=== PATIENT | male | born 1955 | race Caucasian/White ===

== ENCOUNTER → 2020-11-23 12:37 | Outpatient (BNVA) | payer MEDICARE, MEDICAID, SELFPAY | PROVIDERS: PCP Internal Medicine; Visit Provider Internal Medicine | DX: Z45.018 Encounter for adjustment and management of other part of cardiac pacemaker (principal); I48.21 Permanent atrial fibrillation; I10 Essential (primary) hypertension; R60.9 Edema, unspecified | CPT/HCPCS: 93005; 99212 ==

== ENCOUNTER → 2023-05-01 23:59 | Outpatient (BNV) | payer MEDICARE, MEDICAID, SELFPAY ==
--- NOTE | 2023-05-03 14:00 | MHC.OFFVIS ---
Intake Intake Visit Reasons: Remote Device Check- [facility] Allergies aspirin [Aspirin] Allergy (Unknown, Verified 11/23/20 13:01) UPSET STOMACH, edema Penicillins Allergy (Unknown, Verified 11/23/20 13:01) unknown REPLACED BY [facility] Medical History (Updated 02/08/21 @ 10:49 by Dario Obrien MD) Edema, unspecified Essential hypertension MANUEL (obstructive sleep apnea) Permanent atrial fibrillation Surgical History (Updated 11/23/20 @ 13:03 by JONATHAN Small) No pertinent past surgical history Office Procedures Cardiac Device Check Cardiac Device Check Details: Date of service- 05/01/2023 ; Battery life 2.4 years; normal lead parameters; 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 Overall normal device function. [id number] Cardiac Device Interrogation, pacemaker Procedure code (CPT) selection complete Assessment & Plan Assessment & Plan (1) Permanent atrial fibrillation: Code(s): I48.21 - Permanent atrial fibrillation Coding Level of Care Code Procedure Only Diagnoses Permanent atrial fibrillation I48.21 CPT Codes Cardiac Device Check - Cardiac Device 12: [id number] Cardiac Device Interrogation, pacemaker ([id number])
== END ==
PROVIDERS: PCP Internal Medicine; Visit Provider Internal Medicine
DX: I48.21 Permanent atrial fibrillation (principal); Z95.0 Presence of cardiac pacemaker
CPT/HCPCS: 93294

== ENCOUNTER → 2023-07-31 23:59 | Outpatient (BNV) | payer MEDICARE, MEDICAID, SELFPAY ==
--- NOTE | 2023-08-08 13:53 | MHC.OFFVIS ---
Intake Intake Visit Reasons: Remote Device Check- 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 Overall normal device function. [id number] Cardiac Device Interrogation, pacemaker Procedure code (CPT) selection complete Assessment & Plan Assessment & Plan (1) Permanent atrial fibrillation: Code(s): I48.21 - Permanent atrial fibrillation Coding Level of Care Code Procedure Only Diagnoses Permanent atrial fibrillation I48.21 CPT Codes Cardiac Device Check - Cardiac Device 12: [id number] Cardiac Device Interrogation, pacemaker ([id number])
== END ==
PROVIDERS: PCP Internal Medicine; Visit Provider Internal Medicine
DX: I48.21 Permanent atrial fibrillation (principal); Z95.0 Presence of cardiac pacemaker
CPT/HCPCS: 93294

== ENCOUNTER → 2023-10-30 23:59 | Outpatient (BNV) | payer MEDICARE, MEDICAID, SELFPAY ==
--- NOTE | 2023-10-31 19:31 | A.OFFVIS_ITS ---
Intake Intake Visit Reasons: Remote Device Check- [facility] Allergies aspirin [Aspirin] Allergy (Unknown, Verified 11/23/20 13:01) UPSET STOMACH, edema Penicillins Allergy (Unknown, Verified 11/23/20 13:01) unknown [facility] Medical History (Updated 02/08/21 @ 10:49 by Dario Obrien MD) Edema, unspecified MANUEL (obstructive sleep apnea) Essential hypertension Permanent atrial fibrillation Surgical History (Updated 11/23/20 @ 13:03 by JONATHAN Small) No pertinent past surgical history Office Procedures Cardiac Device Check Cardiac Device Check Details: Date of service- 10/30/2023 ; Battery life 1.9 years; normal lead parameters; DETECTIVE [employer]AU 81%; no significant arrhythmias. Overall normal device function. [id number] Cardiac Device Interrogation, pacemaker Procedure code (CPT) selection complete Assessment & Plan Assessment & Plan (1) Permanent atrial fibrillation: Code(s): I48.21 - Permanent atrial fibrillation Plan x Coding Level of Care Code Procedure Only Diagnoses Permanent atrial fibrillation I48.21 CPT Codes Cardiac Device Check - Cardiac Device 12: [id number] Cardiac Device Interrogation, pacemaker ([id number])
== END ==
PROVIDERS: PCP Internal Medicine; Visit Provider Internal Medicine
DX: I48.21 Permanent atrial fibrillation (principal); Z95.0 Presence of cardiac pacemaker
CPT/HCPCS: 93294

== ENCOUNTER → 2024-01-29 23:59 | Outpatient (BNV) | payer MEDICARE, MEDICAID, SELFPAY ==
--- NOTE | 2024-02-05 18:59 | MHC.OFFVIS ---
Intake Intake Visit Reasons: Remote device check- [facility] Allergies aspirin [Aspirin] Allergy (Unknown, Verified 11/23/20 13:01) UPSET STOMACH, edema Penicillins Allergy (Unknown, Verified 11/23/20 13:01) unknown [facility] Medical History (Updated 02/08/21 @ 10:49 by Dario Obrien MD) Edema, unspecified MANUEL (obstructive sleep apnea) Essential hypertension Permanent atrial fibrillation Surgical History (Updated 11/23/20 @ 13:03 by JONATHAN Small) No pertinent past surgical history Office Procedures Cardiac Device Check Cardiac Device Check Details: Date of service- 01/29/2024 ; Battery life 1.7years; normal lead parameters; 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 Overall normal device function. [id number] Cardiac Device Interrogation, pacemaker Procedure code (CPT) selection complete Assessment & Plan Assessment & Plan (1) Permanent atrial fibrillation: Code(s): I48.21 - Permanent atrial fibrillation Plan: x Coding Level of Care Code Procedure Only Diagnoses Permanent atrial fibrillation I48.21 CPT Codes Cardiac Device Check - Cardiac Device 12: [id number] Cardiac Device Interrogation, pacemaker ([id number])
== END ==
PROVIDERS: PCP Internal Medicine; Visit Provider Internal Medicine
DX: I48.21 Permanent atrial fibrillation (principal); Z95.0 Presence of cardiac pacemaker
CPT/HCPCS: 93294

== ENCOUNTER → 2024-02-26 14:56 | Outpatient (BNVA) | payer MEDICARE, MEDICAID, SELFPAY | PROVIDERS: PCP Internal Medicine; Visit Provider Nurse Practitioner Family | DX: I48.21 Permanent atrial fibrillation (principal); I10 Essential (primary) hypertension; R60.9 Edema, unspecified; R06.02 Shortness of breath; Z45.018 Encounter for adjustment and management of other part of cardiac pacemaker | CPT/HCPCS: 93005; 99212 ==

== ENCOUNTER 2024-02-26 14:57 | Outpatient (AMB) | payer MEDICARE, MEDICAID, SELFPAY ==
--- NOTE | 2024-02-26 15:03 | MHC.OFFVIS ---
Vital Signs 02/26/24 15:08 BP 100/62 Blood Pressure Location Lt brachial Position Sitting Pulse 58 Pulse Source Monitor Intake Visit Reasons: over due f/u device ck Flight Kitchen Manager Required: No Director Of Acquisition Marketing: Director Of Acquisition Marketing Present Allergies aspirin [Aspirin] Allergy (Unknown, Verified 02/26/24 15:06) UPSET STOMACH, edema Penicillins Allergy (Unknown, Verified 02/26/24 15:06) unknown Medication List - Last Reconciled 02/26/24 by Aranza Dudley NP-C apixaban (Eliquis) 5 mg PO BID bumetanide 1 mg PO BID digoxin 125 mcg PO DAILY potassium chloride ER (Klor-Con M) 20 mEq PO BID HPI HPI over due f/u device ck: Details: Brian is a 68-year-old male with past medical history of hypertension, permanent AFib, chronic edema of his lower extremities, resides in a assisted facility who presents for follow-up. His last prior visit to our office was 11/23/2020. Today he reports that he has been noticing some shortness of breath recently. He says it comes and goes. He sleeps with the head of the bed elevated some. He no longer ambulates due to his leg edema issues. States it has gotten much worse in the last year following surgery for a twisted bowel. He states since then his right leg has grown considerably. If he is upright his leg swell more and he becomes unsteady and falls. They use a wheelchair for his safety. No coughing or recent illness. No chest discomfort at rest or during his light activity. He does admit to being mostly sedentary. No palpitations, presyncope, syncope. Takes his medications when they are given to him. His med list no longer includes metoprolol. His heart rate and blood pressure seem to run on the low side. Staff member from his assisted facility with him. [facility] Medical History Edema, unspecified MANUEL (obstructive sleep apnea) Essential hypertension Permanent atrial fibrillation Surgical History No pertinent past surgical history Review of Systems Const All systems reviewed & are unremarkable except as noted in HPI and below ENT Denies dizziness Card Details: gross right leg swelling, less in left leg, unable to walk due to swelling Denies chest pain, Denies chest pain at rest, Denies chest pain with activity, Denies rapid heart rate, Denies pedal edema, Denies edema, Denies leg edema, Denies lightheadedness, Denies palpitations, Reports dyspnea, Denies dyspnea on exertion and Reports orthopnea Resp Denies cough, Reports dyspnea and Denies dyspnea on exertion GI Denies hematochezia and Denies change in stool character Musc Reports abnormal gait, Reports limited range of motion, Denies muscle cramps, Reports muscle weakness, Denies numbness, Denies radiating pain into limb, Denies stiffness and Denies tingling Neuro Reports abnormal gait, Denies dizziness, Denies numbness and Denies tingling Endo Denies palpitations Physical Exam Vital Signs: Last Vital Signs Pulse 58 02/26/24 15:08 BP 100/62 02/26/24 15:08 Const Other: chronically ill appearing. Sittiing in wheelchair. significant kyphosis. General: cooperative and no acute distress Orientation/consciousness: patient oriented x3 Neck Neck: Yes normal visual inspection and No no JVD Resp Other: absent lung sounds in left 1/2 up - only left upper lobe region has sounds. Right lung with clear sounds. Effort & Inspection: normal respiratory effort Auscultation: clear to auscultation bilaterally (on right), no rales, no rhonchi and no wheezes Cardio Jugular venous distension: no JVD Rate: regular rate Rhythm: abnormal rhythm Heart sounds: S1 normal heart sound present, S2 normal heart sound present, no murmurs and no rubs Neuro General: patient oriented x3 Extrem Other: pitting edema right leg to upper thigh. Pitting edema left leg to knee. Psych Appearance: grossly normal Mental Status: mental status grossly normal Speech and movement: Normal speech and movement present (mobility limited by edema and scoliosis) Office Procedures Cardiac Device Check Cardiac Device Check Details: [facility] [employer] single lead pacemaker interrogation today shows battery 1.7 years, VVI mode, low rate 60, ventricular threshold 1.625 volts at 0.5 milliseconds, V paced 40%, no alerts, auto capture turned on [id number] Cardiac Device Check, leadless/single lead pacemaker Procedure code (CPT) selection complete EKG Details: Today, read by me, underlying atrial fibrillation, frequent ventricular paced beats on tracing, left axis deviation, lateral T-wave abnormality, rate 58, QTC 457 milliseconds [id number], Complete Assessment & Plan Assessment & Plan (1) Permanent atrial fibrillation: Code(s): I48.21 - Permanent atrial fibrillation Category: Medical Plan: History of permanent atrial fibrillation. He had been on metoprolol and digoxin for heart rate control. At this time I am only seeing digoxin on his med list. No recent digoxin level for me to review. He is on Eliquis now for anticoagulation. He previously had been on Coumadin. No bleeding issues reported. Labs done 01/29/2024 does show creatinine 0.82, potassium 3.4, hematocrit 31.4. On his [facility] paperwork I wrote to have digoxin blood level drawn at least twice yearly along with his BMP and CBC. (2) Edema, unspecified: Code(s): R60.9 - Edema, unspecified Category: Medical Plan: History of edema in his lower extremities. He tells me this problem has been much worse since he underwent abdominal surgery last year. He has been on Bumex 1 mg b.i.d. which seems long-term. His kidney function is normal. On exam he does have significant edema in his right lower extremity, pitting all the way up to the upper thigh. He has less edema noted in his left lower extremity, pitting from the knee down. He tells me he is not able to ambulate any longer due to this problem. Last known echocardiogram was done 04/2014 showing EF 60-65% with moderate LVH. On exam I am hearing clear lung sounds on the right and absent lung sounds in left mid and lower lobes. He may have pleural effusion along with this fluid retention. He is reporting shortness of breath. On his [facility] paperwork I recommended a BNP, chest x-ray. Increase his Bumex up to 2 mg in the a.m. and 1 mg in the p.m. with lab work in 1 week. Echocardiogram to be done at [facility] in the near future. Cardiology follow-up in the office approximately 2 months, sooner if needed. (3) Shortness of breath: Code(s): R06.02 - Shortness of breath Category: Medical Plan: As above (4) Essential hypertension: Code(s): I10 - Essential (primary) hypertension Category: Medical Plan: Running on the low side. He is no longer on metoprolol. He is on digoxin for heart rate control. (5) Pacemaker: Code(s): Z95.0 - Presence of cardiac pacemaker Category: Medical Plan: Patient has [facility] single lead pacemaker in place. Functioning normally on interrogation today. Battery 1.7 years. He has remote monitoring in use. Next office interrogation due in 1 year. Plan Time spent on chart review, documentation, interview and assessment Coding Level of Care Code Est Pt Level 4 (16774) Diagnoses Permanent atrial fibrillation I48.21 Edema, unspecified R60.9 Shortness of breath R06.02 Essential hypertension I10 Pacemaker Z95.0 CPT Codes Cardiac Device Check - Cardiac Device 1: [id number] Cardiac Device Check, leadless/single lead pacemaker ([id number]) EKG - CPT: 20280-[id number], Complete ([id number]) Time Spent (min) 30
[2024-02-26 15:08] VITALS: BP 100/62; PULSE 58
== END 2024-02-26 15:57 | disposition home or self-care (01) ==
PROVIDERS: PCP Internal Medicine; Visit Provider Nurse Practitioner Family
DX: I48.21 Permanent atrial fibrillation (principal); R60.9 Edema, unspecified; R06.02 Shortness of breath; I10 Essential (primary) hypertension; Z95.0 Presence of cardiac pacemaker
CPT/HCPCS: 93010; 93279; 99214

== ENCOUNTER → 2024-03-20 13:04 | Outpatient (REF) | payer MEDICARE, MEDICAID, SELFPAY ==
--- NOTE | 2024-03-20 13:14 | CA_ITS ---
Transthoracic Echocardiogram Patient (Last, First, Middle): Brian Carter D Gender: Male Date of : 1955 Age: 68 Procedure Date: 03/20/2024 Procedure Type: Transthoracic Echocardiogram Location: OP Height: 187.96 cm Weight: 98.88 kg BSA: 2.25 m2 Heart Rate: bpm BP: 116 / 56 mmHg Booster Pump Oiler: Referring MD: Aranza Dudley UNDERCOLLAR BASTERNegra Symptoms: R06.02 - Shortness of breath Study Quality: Adequate Conclusions: - The left ventricular systolic function is mildly decreased. The calculated ejection fraction is 46% by biplane method. - Severely increased right ventricular cavity size. - Severe biatrial enlargement. - No obvious valvular pathology seen on this study. Findings Left Ventricle Normal left ventricular cavity size. There is moderately increased left ventricular wall thickness. The left ventricular systolic function is mildly decreased. The calculated ejection fraction is 46% by biplane method. There is mild global hypokinesis. Diastolic function is indeterminate on the basis of available data. Right Ventricle Severely increased right ventricular cavity size. There is normal right ventricular systolic function. There is a pacemaker wire seen in the right ventricle. Atria Severe biatrial enlargement. Aortic Valve The aortic valve was not well visualized. There is no aortic valve stenosis. There is no aortic valve regurgitation. Mitral Valve The mitral valve appears normal. There is mild mitral valve regurgitation. There is no mitral valve stenosis. Pulmonic Valve The pulmonic valve was not well visualized. Tricuspid Valve Normal tricuspid valve structure. There is trace tricuspid valve regurgitation. Tricuspid regurgitation envelope is inadequate for calculation of right ventricular systolic pressure. Great Vessels The sinuses of valsalva and sino tubular ridge are normal in size. Venous The inferior vena cava was not well visualized. Pericardium/Pleural There is no evidence of pericardial effusion. Prior Study Comparison Changes noted compared to prior study dated: 05/22/2014. Decrease in LVEF; increase in RV size. Recommendations, Care & Conclusions No obvious valvular pathology seen on this study. Measurements 2D Linear Measurements IVSd: 1.45 0.6-0.9/0.6-1.0 cm LVIDd: 4.87 3.9-5.3/4.2-5.9 cm LVIDd Index: 2.16 2.4-3.2/2.2-3.1 cm/m2 LVIDs: 3.74 2.0-3.6 cm LVPWd: 1.45 0.7-1.1 cm Ao Root: 3.60 2.1-3.5 cm LA Diam: 6.40 2.7-3.8/3.0-4.0 cm LAIDs Index: 2.84 1.5-2.3 cm/m2 LV Mass: 367.74 67-162/88-224 g LV Mass Index: 163.44 43-95/49-115 g/m2 LVOT Diam: 2.40 3.0+(-)1.3 cm 2D Systolic Function EF 4C: 45.40 >55% EF 2C: 50.90 >55% EF BiP: 46.20 >55% Mitral Valve MV Pk E: 0.81 MV Decel Time: 188.00 E'Lateral: 12.80 E'Medial: 7.62 E/E' Med: 10.60 E/E' Lat: 6.30 PHT: 55.00 MVA PHT: 4.00 Decel [place]: 4.31 Aortic Valve AoV Pk Manjinder: 1.10 AoV Mn Manjinder: 0.72 AoV VTI: 0.25 AoV Pk Grad: 5.00 Aov Mn Grad: 3.00 DI Cont.VTI: 2.82 LVOT LVOT Pk Manjinder: 0.78 LVOT Mn Manjinder: 0.50 LVOT VTI: 0.16 LVOT Pk Grad: 2.00 LVOT Mn Grad: 1.00 LVOT Diam: 2.40 LVOT Area: 4.52 Diastolic Function MV Pk E: 0.81 E'Medial: 7.62 E/E' Med: 10.60 E' Laterial: 12.80 E/E' Lat: 6.30 Right Ventricle TAPSE (mm): 33.80 TVS' Manjinder: 12.90 Great Vessels Aorta Ao Root-2D: 3.60 2.0-3.7 cm Pulmonary Valve PV Pk Manjinder: 1.36 Peak PV Grad: 7.00 Updated in Other Vendor System with Status of Final Dario Obrien MD electronically signed on 03/22/2024 10:51:10 AM with status of Final
== END ==
LOC: HO.CARD 13:04
PROVIDERS: PCP Internal Medicine; Visit Provider Nurse Practitioner Family
DX: R06.02 Shortness of breath (principal); R60.9 Edema, unspecified; Z95.0 Presence of cardiac pacemaker
CPT/HCPCS: 93306

== ENCOUNTER → 2024-03-20 13:14 | Outpatient (BNV) | payer MEDICARE, MEDICAID, SELFPAY | PROVIDERS: PCP Internal Medicine; Visit Provider Internal Medicine | DX: I51.7 Cardiomegaly (principal); I34.0 Nonrheumatic mitral (valve) insufficiency | CPT/HCPCS: 93306 ==

== ENCOUNTER → 2024-04-29 23:59 | Outpatient (BNV) | payer MEDICARE, MEDICAID, SELFPAY ==
--- NOTE | 2024-05-09 10:19 | A.OFFVIS_ITS ---
Intake Visit Reasons: Remote device check- [facility] Allergies aspirin [Aspirin] Allergy (Unknown, Verified 02/26/24 15:06) UPSET STOMACH, edema Penicillins Allergy (Unknown, Verified 02/26/24 15:06) unknown [facility] Medical History Edema, unspecified MANUEL (obstructive sleep apnea) Essential hypertension Permanent atrial fibrillation Surgical History No pertinent past surgical history Office Procedures Cardiac Device Check Cardiac Device Check Details: Date of service- 04/29/2024 ; Battery life >1 years; normal lead parameters; ICT BUSINESS ANALYST 60%; no significant arrhythmias. Overall normal device function. [id number] Cardiac Device Interrogation, pacemaker Procedure code (CPT) selection complete Assessment & Plan Assessment & Plan (1) Permanent atrial fibrillation: Code(s): I48.21 - Permanent atrial fibrillation Category: Medical Plan x Coding Level of Care Code Procedure Only Diagnoses Permanent atrial fibrillation I48.21 CPT Codes Cardiac Device Check - Cardiac Device 12: [id number] Cardiac Device Interrogation, pacemaker ([id number])
== END ==
PROVIDERS: PCP Internal Medicine; Visit Provider Internal Medicine
DX: I48.21 Permanent atrial fibrillation (principal); Z95.0 Presence of cardiac pacemaker
CPT/HCPCS: 93294

== ENCOUNTER 2024-06-10 13:23 | Outpatient (AMB) | payer MEDICARE, MEDICAID, SELFPAY ==
--- NOTE | 2024-06-10 13:47 | MHC.OFFVIS ---
Vital Signs 06/10/24 13:55 Weight 240 lb BP 100/62 Blood Pressure Location Lt brachial Position Sitting Pulse 59 Pulse Source Pulse Oximeter Intake Visit Reasons: 2.5 mth fu Transportation Department Head Required: No Soft Metals Hand Engraver: Soft Metals Hand Engraver Present Allergies aspirin [Aspirin] Allergy (Unknown, Verified 06/10/24 13:51) UPSET STOMACH, edema Penicillins Allergy (Unknown, Verified 06/10/24 13:51) unknown Medication List - Last Reconciled 06/10/24 by Aranza Dudley NP-C apixaban (Eliquis) 5 mg PO BID bumetanide 1 mg PO BID collagenase clostridium histo. (Santyl) topical digoxin 125 mcg PO DAILY duloxetine 20 mg PO BID gabapentin 200 mg PO BID lactulose PO nystatin (Nystop) topical oxybutynin chloride ER 5 mg PO DAILY potassium chloride ER (Klor-Con M) 20 mEq (2 x 10 mEq) PO ONCE potassium chloride ER mEq PO BID tamsulosin 0.4 mg PO DAILY HPI HPI 2.5 mth fu: Details: Brian is a 68-year-old male with past medical history of hypertension, permanent AFib, chronic edema of his lower extremities, resides in a custodial facility who presents for follow-up after recent echocardiogram. Today he reports that he has been doing well since his last visit. He tells me his breathing has been more comfortable. He sleeps with the head of the bed which is his norm. He continues to have leg edema which has been chronic. He no longer ambulates, but tells me he is able to stand with assistance. He uses a wheelchair daily. No chest discomfort at rest or during his light activity. No palpitations, presyncope, syncope. Takes his medications when they are given to him. His heart rate and blood pressure run on the low side. Staff member from his custodial facility with him. [facility] Medical History Edema, unspecified MANUEL (obstructive sleep apnea) Essential hypertension Permanent atrial fibrillation Surgical History No pertinent past surgical history Review of Systems Const All systems reviewed & are unremarkable except as noted in HPI and below ENT Denies dizziness Card Denies chest pain, Denies chest pain at rest, Denies chest pain with activity, Denies rapid heart rate, Reports pedal edema, Denies edema, Reports leg edema, Denies lightheadedness, Denies palpitations, Denies dyspnea, Denies dyspnea on exertion and Denies orthopnea Resp Denies cough, Denies dyspnea and Denies dyspnea on exertion GI Denies hematochezia and Denies change in stool character Musc Reports abnormal gait, Denies limited range of motion, Denies muscle cramps, Reports muscle weakness, Denies numbness, Denies radiating pain into limb, Denies stiffness and Denies tingling Neuro Reports abnormal gait, Denies dizziness, Denies numbness and Denies tingling Endo Denies palpitations Physical Exam Vital Signs: Last Vital Signs Pulse 59 06/10/24 13:55 BP 100/62 06/10/24 13:55 Const Other: chronically ill appearing. Sittiing in wheelchair. significant kyphosis. General: cooperative and no acute distress Orientation/consciousness: patient oriented x3 Neck Neck: Yes normal visual inspection and No no JVD Resp Other: absent lung sounds in left base, diminshed remaining left lung sounds. Right lung with clear sounds. Effort & Inspection: normal respiratory effort Auscultation: not clear to auscultation bilaterally (on right), no rales, no rhonchi and no wheezes Cardio Jugular venous distension: no JVD Rate: regular rate Rhythm: abnormal rhythm Heart sounds: S1 normal heart sound present, S2 normal heart sound present, no murmurs and no rubs Neuro General: patient oriented x3 Extrem Other: generalized edema of legs, less pitting than previously noted Psych Appearance: grossly normal Mental Status: mental status grossly normal Speech and movement: Normal speech and movement present (mobility limited by edema and scoliosis) Assessment & Plan Assessment & Plan (1) Permanent atrial fibrillation: Code(s): I48.21 - Permanent atrial fibrillation Category: Medical Plan: History of permanent atrial fibrillation. He had been on metoprolol and digoxin for heart rate control. Now according to the med list he is only on digoxin. On last visit I requested a digoxin level be done however high have no reports to say this was completed. He is not noticing any heart palpitations. His heart tones are noted to be mildly irregular. Will again request that digoxin level be done twice yearly. He is on Eliquis now for anticoagulation. No bleeding issues reported. Labs done 01/29/2024 does show creatinine 0.82, potassium 3.4, hematocrit 31.4. Cardiology follow-up 6 months, sooner if needed. (2) Edema, unspecified: Code(s): R60.9 - Edema, unspecified Category: Medical Plan: History of edema in his lower extremities. He tells me this problem has been much worse since he underwent abdominal surgery last year. He has been on Bumex 1 mg b.i.d. which seems long-term. His kidney function is normal. On last visit his Bumex was increased to 2 mg in the a.m. and 1 mg in the p.m.. I had requested that repeat labs be done however none are available for me to view today. Does have less pitting of the edema noted. He is mostly sedentary and sits in a wheelchair with his legs dependent. An echocardiogram had been done showing EF 46%, severe increase in the RV size and severe biatrial enlargement. A CTA of the chest was done on him in January which showed no pulmonary embolism. He currently reports that his breathing is comfortable and he does not appear to have decompensated heart failure. He does have diminished lung sounds on the left which was noted on last exam. A chest x-ray was recommended however again I see no results. At this time I will have him continue on current Bumex. I wrote on his half-way paperwork that labs be followed and chest x-ray recommended. Leg elevation when sitting if able. (3) Essential hypertension: Code(s): I10 - Essential (primary) hypertension Category: Medical Plan: Running on the low side. He is no longer on metoprolol. He is on digoxin for heart rate control. (4) Pacemaker: Code(s): Z95.0 - Presence of cardiac pacemaker Category: Medical Plan: Patient has [facility] [employer] single lead pacemaker in place. Functioning normally on interrogation last visit. Battery 1.7 years. He has remote monitoring in use. Next office interrogation due February 2025. (5) Abnormal echocardiogram: Code(s): R93.1 - Abnormal findings on diagnostic imaging of heart and coronary circulation Category: Medical Plan: Echocardiogram as above with mildly reduced EF and increased RV and atrial sizes. No known history of CAD. No reports of anginal symptoms but mostly sedentary. Not able to add meds for neurohormonal modulation due to low blood pressures. Check with Dr. Obrien regarding need for nuclear stress test. Plan Time spent on chart review, documentation, interview and assessment Coding Level of Care Code Est Pt Level 4 (17345) Diagnoses Permanent atrial fibrillation I48.21 Edema, unspecified R60.9 Essential hypertension I10 Pacemaker Z95.0 Abnormal echocardiogram R93.1
[2024-06-10 13:55] VITALS: BP 100/62; PULSE 59
== END 2024-06-10 14:55 | disposition home or self-care (01) ==
PROVIDERS: PCP Internal Medicine; Visit Provider Nurse Practitioner Family
DX: I48.21 Permanent atrial fibrillation (principal); R60.9 Edema, unspecified; I10 Essential (primary) hypertension; Z95.0 Presence of cardiac pacemaker; R93.1 Abnormal findings on diagnostic imaging of heart and coronary circulation
CPT/HCPCS: 99214

== ENCOUNTER → 2024-06-10 13:23 | Outpatient (BNVA) | payer MEDICARE, MEDICAID, SELFPAY | PROVIDERS: PCP Internal Medicine; Visit Provider Nurse Practitioner Family | DX: I10 Essential (primary) hypertension (principal); I48.21 Permanent atrial fibrillation; R60.0 Localized edema; R93.1 Abnormal findings on diagnostic imaging of heart and coronary circulation; Z95.0 Presence of cardiac pacemaker | CPT/HCPCS: 99212 ==

== ENCOUNTER → 2024-07-29 23:59 | Outpatient (BNV) | payer MEDICARE, MEDICAID, SELFPAY ==
--- NOTE | 2024-07-30 15:20 | A.OFFVIS_ITS ---
Intake Visit Reasons: Remote device check- [facility] Allergies aspirin [Aspirin] Allergy (Unknown, Verified 06/10/24 13:51) UPSET STOMACH, edema Penicillins Allergy (Unknown, Verified 06/10/24 13:51) unknown [facility] Medical History Edema, unspecified MANUEL (obstructive sleep apnea) Essential hypertension Permanent atrial fibrillation Surgical History No pertinent past surgical history Office Procedures Cardiac Device Check Cardiac Device Check Details: Date of service- 07/29/2024 ; Battery life >1 years; normal lead parameters; PATIENT RELATIONS SPECIALIST 36%; no significant arrhythmias. Overall normal device function. [id number] Cardiac Device Interrogation, pacemaker Procedure code (CPT) selection complete Assessment & Plan Assessment & Plan (1) Pacemaker: Code(s): Z95.0 - Presence of cardiac pacemaker Category: Medical (2) Permanent atrial fibrillation: Code(s): I48.21 - Permanent atrial fibrillation Category: Medical Plan x Coding Level of Care Code Procedure Only Diagnoses Pacemaker Z95.0 Permanent atrial fibrillation I48.21 CPT Codes Cardiac Device Check - Cardiac Device 12: [id number] Cardiac Device Interrogation, pacemaker ([id number])
== END ==
PROVIDERS: PCP Internal Medicine; Visit Provider Internal Medicine
DX: I48.21 Permanent atrial fibrillation (principal); Z95.0 Presence of cardiac pacemaker
CPT/HCPCS: 93294

== ENCOUNTER 2024-12-11 13:40 | Outpatient (AMB) | payer MEDICARE, MEDICAID, SELFPAY ==
--- NOTE | 2024-12-11 13:42 | MHC.OFFVIS ---
Vital Signs 12/11/24 13:43 Height 6 ft 5 in BMI Reason not done Patient refused/unable BP 98/62 Blood Pressure Location Lt brachial Position Semi Card's Pulse 69 Pulse Source Monitor Intake Visit Reasons: 6 mth Allergies aspirin [Aspirin] Allergy (Unknown, Verified 06/10/24 13:51) UPSET STOMACH, edema Penicillins Allergy (Unknown, Verified 06/10/24 13:51) unknown Medication List - Last Reviewed 12/11/24 by Cyndie Dash acetaminophen 325 mg PO QID PRN apixaban (Eliquis) 5 mg PO BID collagenase clostridium histo. (Santyl) topical dapagliflozin propanediol 10 mg PO DAILY digoxin 125 mcg PO DAILY duloxetine 20 mg PO BID furosemide 80 mg PO gabapentin 200 mg PO BID lactulose PO nystatin (Nystop) topical oxybutynin chloride ER 5 mg PO DAILY pantoprazole mg PO DAILY potassium chloride ER (Klor-Con M) 20 mEq (2 x 10 mEq) PO ONCE tamsulosin 0.4 mg PO DAILY HPI Comments Details: Brian is here for follow-up regarding atrial fibrillation. The last couple of visits, he has seen the nurse practitioner. It has been in fact quite some time since I have seen him. Essentially, he has got permanent atrial fibrillation. He is maintained only on digoxin per records. A recent discharge summary from [facility] summarizes all his medical issues. He is chronically wheelchair-bound with chronic decubitus ulcers, biventricular mixed systolic/diastolic dysfunction, reduced RV function, severe TR, pulmonary hypertension, bilateral femoral DVT in 2022, sick sinus syndrome, status post pacemaker, chronic lymphedema, recurrent cellulitis in his lower extremities, left leg abscess, among others. In 10/2024, it seems that he was hospitalized at [facility] with bright red blood per rectum and respiratory failure and congestive heart failure. It seems he was anemic, having anasarca. Underwent blood transfusions. Currently, he states that he cannot walk at all. Essentially bed-bound. Comes in a stretcher with ambulance personnel. No overt symptoms like angina or shortness of breath. skilled nursing meds reviewed. [facility] Medical History (Updated 12/11/24 @ 16:04 by Dario Obrien MD) Chronic combined systolic and diastolic CHF (congestive heart failure) Edema, unspecified MANUEL (obstructive sleep apnea) Essential hypertension Permanent atrial fibrillation Surgical History No pertinent past surgical history Family History (Updated 12/11/24 @ 14:08 by Dario Obrien MD) Mother Breast cancer Father Liver cancer Social History (Updated 12/11/24 @ 13:53 by Dario Obrien MD) Patient Tobacco Use Status: Former Tobacco user Review of Systems Const Denies weakness ENT Denies dizziness Card Denies chest pain, Denies chest pain with activity, Denies syncope, Denies rapid heart rate, Denies pedal edema, Denies edema, Denies leg edema, Denies lightheadedness, Denies palpitations, Denies dyspnea, Denies dyspnea on exertion and Denies orthopnea Resp Denies cough, Denies dyspnea and Denies dyspnea on exertion GI Denies hematochezia and Denies change in stool character Musc Denies abnormal gait, Denies muscle cramps, Denies muscle weakness, Denies numbness, Denies radiating pain into limb and Denies tingling Neuro Denies abnormal gait, Denies dizziness, Denies syncope, Denies numbness, Denies tingling and Denies weakness Endo Denies palpitations Physical Exam Vital Signs: Last Vital Signs Pulse 69 12/11/24 13:43 BP 98/62 12/11/24 13:43 Const Other: Lying in his stretcher General: comfortable and no acute distress Orientation/consciousness: patient oriented x3 HEENT Other: Unremarkable Head: Yes normal to inspection Neck Neck: Yes normal visual inspection Chest Chest palpation & inspection: normal inspection of the chest Resp Other: Difficult to auscultate because of being in a stretcher/body position. No overt findings in the front. Cardio Palpation: normal PMI Heart sounds: S1 normal heart sound present, S2 normal heart sound present, no gallops, no murmurs and no rubs GI Palpation (GI): Soft to palpation Back/Spine/Pelvis Other: unremarkable Skin General skin exam: no rashes or lesions noted Neuro General: patient oriented x3 Extrem Other: Chronic changes. Psych Mental Status: mental status grossly normal Office Procedures EKG Details: EKG shows atrial fibrillation at a rate of 69/Min; rightward axis; incomplete right bundle-branch block pattern; anterior T inversions. [id number], Complete Assessment & Plan Assessment & Plan (1) Permanent atrial fibrillation: Code(s): I48.21 - Permanent atrial fibrillation Category: Medical Plan: Continue Eliquis for the foreseeable future. GI bleeding concerns noted. We discussed about Watchman device today. I also gave him a brochure to review. If he decides to proceed that way, we can arrange consultation at [facility]. Continue digoxin. Digoxin levels should be checked periodically. Last levels are 0.7, 0.8 at [facility] from 10/2024. Last creatinine is 0.68. (2) Chronic combined systolic and diastolic CHF (congestive heart failure): Code(s): I50.42 - Chronic combined systolic (congestive) and diastolic (congestive) heart failure Category: Medical Plan: Per echocardiogram from [place]-02/2024- LVEF 46%. Indeterminate diastolic function. Severely increased right ventricular size with normal function. Per echocardiogram from [facility] 09/2024, LV function described to be reduced but not quantified. Restrictive diastolic function with elevated filling pressures. Dilated right ventricle. Severe tricuspid regurgitation with pulmonary hypertension. He has longstanding leg swelling which is likely multifactorial but cardiac issues above plays some role. Per [facility] notes, it seems that Entresto as put on hold because of hypotension. He is on furosemide, dapagliflozin. Unlikely that he will be able tolerate much meds because of blood pressure. Even if we put him on ideal guideline based medical therapy, doubt cardiac function is going to normalize. No changes in meds made today as he is already hypotensive at 98/62 mm Hg. (3) Chronic right heart failure: Code(s): I50.812 - Chronic right heart failure Category: Medical Plan: Plan as above. Continue diuretics. Local care for legs. Plan Total time spent including review of [facility] records, counseling, documentation, coordination of care-60 minutes. Coding Level of Care Code Est Pt Level 5 (81386) Complex EM visit Add On G2211 Diagnoses Permanent atrial fibrillation I48.21 Chronic combined systolic and diastolic CHF (congestive heart failure) I50.42 Chronic right heart failure I50.812 CPT Codes EKG - CPT: 54546-[id number], Complete ([id number])
[2024-12-11 13:43] VITALS: BP 98/62; PULSE 69
--- OUTSIDE RECORDS SUMMARY | 2024-12-11 14:02 | XMS_ITS | Continuity of Care Document ---
Author Organization [facility] ter Address [address] [place] [id number]- Care Team Providers Care [place] R[employer] Maker Name Role Phone Elder , Katie Elliott Primary Care Physicia n Encounter [facility] [place] Date(s): 11/09/24 - 11/19/[address] [address]- Encounter Diagnosis GI bleed(Final) - 11/09/24 Hypotension(Final) - 11/09/24 Discharge Disposition: A-D/C Home Attending Physician: Joselyn Miner MD Admitting Physician: Nirav Mayes Sr, MD Referring Physician: Not on Staff, Referring MD Encounter Type: Disch IP Allergies, Adverse Reactions, Alerts Substance Criticality Severity Reaction Reaction Severity Status aspirin upset stomach Aspirin adverse reaction Aspirin adverse reaction Active penicillins rash Active Immunizations Given and Recorded Vaccine Date Status Refusal Reason influenza virus vaccine, inactivated 08/05/24 Galindo rded influenza virus vaccine, inactivated 07/20/23 Galindo rded SARS-CoV-2(COVID-19)mRNA-LNP vac([id number]) 07/22/24 Recorded SARS-CoV-2(COVID-19)mRNA-LNP vac([id number]) 02/02/24 Recorded RSV vaccine preF3, recombinant 10/13/23 Recorded SARS-CoV-2(COVID-19)mRNA-LNP vac([id number]) 08/28/23 Recorded [id number] 12y+ bivalent booster vax 03/08/23 Recorded [id number] 12y+ bivalent booster vax 07/20/22 Recorded pneumococcal 23-valent vaccine 10/07/22 Recorded SARS-CoV-2 (COVID-19) mRNA BNT-162b2 vac 02/11/22 Recorded SARS-CoV-2 (COVID-19) mRNA BNT-162b2 vac 07/28/21 Recorded SARS-CoV-2 (COVID-19) mRNA BNT-162b2 vac 11/24/20 Recorded SARS-CoV-2 (COVID-19) mRNA BNT-162b2 vac 11/03/20 Recorded tetanus/diphtheria/pertussis, acel(Tdap) 12/08/21 Given pneumococcal 13-valent vaccine 03/07/19 Recorded Medications acetaminophen 325 mg oral tablet 650 mg, 2, tablet, By Mouth, 4 times a day, PRN, Refills 0, Maintenance, as needed for fever/pain, 04/24/23 12:51:00 PM EDT, Partial fill upon patient request if the prescription is for a schedule II opioid drug. Start Date: 04/24/23 Status: Ordered Repeat number: 1 Acetaminophen Tablet 650 mg, Tablet, By Mouth, Every 4 hours, PRN for Pain , Mild, Temperature Greater than 100.5, Routine, 11/09/24 2:01:00 PM EST Start Date: 11/09/24 Stop Date: 12/09/24 Status: Ordered Repeat number: 1 albuterol-ipratropium 3 mg-0.5 mg/3 ml inhalation solution 3 mL, Neb, 4 times a day, PRN Wheezing/Shortness of Breath, Maintenance, 11/09/24 6:42:00 PM EST, Solution, Partial fill upon patient request if the prescription is for a schedule II opioid drug. Start Date: 11/09/24 Status: Ordered Repeat number: 1 brimonidine 0.2% ophthalmic solution 1 drops, Eyes, Both, 2 times a day, Maintenance, 11/09/24 6:31:00 PM EST, Partial fill upon patient request if the prescription is for a schedule II opioid drug. Start Date: 11/09/24 Status: Ordered Repeat number: 1 Carafate 1 gm oral tablet 1 Gm, By Mouth, 4 times a day, Refills 0, Maintenance, 11/19/24 10:05:00 AM EST, Partial fill upon patient request if the prescription is for a schedule II opioid drug. Start Date: 11/19/24 Status: Ordered Repeat number: 1 dapagliflozin 10 mg oral tablet 1 tablet = 10 mg, By Mouth, Daily, 0 Refills, Maintenance, 11/03/24 9:22:00 AM EST, Tablet, Partial fill upon patient request if the prescription is for a schedule II opioid drug. Start Date: 11/03/24 Status: Ordered Repeat number: 1 Digox 125 mcg (0.125 mg) oral tablet 1 tablet = 125 mcg, By Mouth, Daily, # 30 tablet, 0 Refills, Maintenance, 10/23/24 11:02:00 AM EST, Partial fill upon patient request if the prescription is for a schedule II opioid drug. Start Date: 10/23/24 Status: Ordered Quantity: 30.0 Unit: tablet Repeat number: 1 digoxin 0.125 mg oral tablet 0.125 mg, Tablet, By Mouth, 11/19/24 4:00:00 PM EST Start Date: 11/19/24 Stop Date: 11/19/24 Status: Completed Repeat number: 1 Dulcolax 10 mg rectal suppository 1 supp = 10 mg, Rectally, Daily, PRN as needed for constipation, Maintenance, 11/09/24 6:33:00 PM EST, Suppository, Partial fill upon patient request if the prescription is for a schedule II opioid drug. Start Date: 11/09/24 Status: Ordered Repeat number: 1 duloxetine 20 mg oral enteric coated capsule 1 capsule = 20 mg, By Mouth, 2 times a day, 0 Refills, Maintenance, 10/23/24 10:51:00 AM EST, Capsule, Partial fill upon patient request if the prescription is for a schedule II opioid drug. Start Date: 10/23/24 Status: Ordered Repeat number: 1 Eliquis 5 mg oral tablet 1 tablet = 5 mg, By Mouth, 2 times a day, Maintenance, 11/09/24 6:30:00 PM EST, Tablet, Partial fillupon patient request if the prescription is for a schedule II opioid drug. Start Date: 11/09/24 Status: Ordered Repeat number: 1 ferrous sulfate 325 mg oral enteric coated tablet 325 mg, 1, tablet, By Mouth, Daily, Refills 0, Maintenance, 11/03/24 9:22:00 AM EST, Partial fill upon patient request if the prescription is for a schedule II opioid drug. Start Date: 11/03/24 Status: Ordered Repeat number: 1 gabapentin 100 mg oral capsule 200 mg, 2, capsule, By Mouth, 2 times a day, Refills 0, Maintenance, 10/23/24 10:51:00 AM EST, Partial fill upon patient request if the prescription is for a schedule II opioid drug. Start Date: 10/23/24 Status: Ordered Repeat number: 1 Lasix 80 mg oral tablet 80 mg, By Mouth, 2 times a day, Refills 0, Maintenance, 11/19/24 10:07:00 AM EST, Partial fill upon patient request if the prescription is for a schedule II opioid drug. Start Date: 11/19/24 Status: Ordered Repeat number: 1 melatonin 3 mg oral tablet 2 tablet = 6 mg, By Mouth, Daily at bedtime, PRN for insomnia, Maintenance, 11/09/24 6:41:00 PM EST,Tablet, Partial fill upon patient request if the prescription is for a schedule II opioid drug. Start Date: 11/09/24 Status: Ordered Repeat number: 1 Milk of Magnesia 8% oral suspension 30 mL = 2.4 Gm, By Mouth, Daily, PRN for constipation, Maintenance, 11/09/24 6:40:00 PM EST, Suspension, Partial fill upon patient request if the prescription is for a schedule II opioid drug. Start Date: 11/09/24 Status: Ordered Repeat number: 1 Multivit Therapeutic/Minerals Tablet 1 tablet, By Mouth, Daily, 0 Refills, Maintenance, 10/23/24 10:51:00 AM EST, Tablet, Partial fill upon patient request if the prescription is for a schedule II opioid drug. Start Date: 10/23/24 Status: Ordered Repeat number: 1 nalOXONE / Narcan 4mg Nasal Wentworth (OP) = 0.4 mg, Once, PRN as needed, may repeat every 2 to 3 minutes until patient responds, Maintenance,2 Start Date: 11/09/24 Status: Ordered Repeat number: 1 oxybutynin 5 mg/24 hours oral tablet, extended release = 5 mg, By Mouth, Daily, 0 Refills, Maintenance, 10/23/24 10:51:00 AM EST, XL Tablet, Partial fill upon patient request if the prescription is for a schedule II opioid drug. Start Date: 10/23/24 Status: Ordered Repeat number: 1 oxyCODONE 5 mg oral tablet 5 mg, 1, tablet, By Mouth, Every 6 hours, PRN, Refills 0, Tot. Refills 0, Maintenance, Pain , Moderate, 10/28/24 12:43:00 AM EST, Partial fill upon patient request if the prescription is for a scheduleII opioid drug. Start Date: 10/28/24 Status: Ordered Repeat number: 1 potassium chloride 20 mEq oral tablet, extended release 1 tablet = 20 mEq, By Mouth, Daily, Maintenance, 11/09/24 6:44:00 PM EST, ER Tablet, Partial fill upon patient request if the prescription is for a schedule II opioid drug. Start Date: 11/09/24 Status: Ordered Repeat number: 1 Protonix 40 mg oral delayed release tablet = 40 mg, By Mouth, Daily in AM, 0 Refills, Maintenance, 11/19/24 10:12:00 AM EST, EC Tablet Start Date: 11/19/24 Status: Ordered Repeat number: 1 tamsulosin 0.4 mg oral capsule 0.4 mg, 1, capsule, By Mouth, Daily, Refills 0, Maintenance, 10/23/24 10:51:00 AM EST, Partial fill upon patient request if the prescription is for a schedule II opioid drug. Start Date: 10/23/24 Status: Ordered Repeat number: 1 vancomycin 125 mg oral capsule = 125 mg, By Mouth, Every 6 hours, Doses over 125 mg require ID consult. Indication for Use: C. difficile colitis, 0 Refills, Maintenance, 11/19/24 10:05:00 AM EST, Capsule, Partial fill upon patient request if the prescription is for a schedule II opioid drug. Start Date: 11/19/24 Status: Ordered Repeat number: 1 Vashe Topical Solution 475 mL, Topically, Daily, 0 Refills, Maintenance, Solution Start Date: 11/19/24 Status: Ordered Repeat number: 1 Problem List Condition Confirmation Course Effective Dates Status [facility] atus Informant Lymphedema of leg Confirmed 06/22/24 Active Obese class II Confirmed Active Vital Signs Most recent to oldest [Reference Range]: 1 2 3 Height 198 cm (11/19/24 8:35 AM) 198 cm (11/18/24 4:16 PM) 198 cm (11/14/24 8:07 AM) Weight 149.4 kg (11/18/24 4:00 AM) 148 kg (11/14/24 8:07 AM) 148 kg (11/10/24 8:23 PM) Oxygen Saturation [94-100 %] 94 % (11/19/24 8:00 PM) 98 % (11/19/24 8:35 AM) 97 % (11/18/24 4:16 PM) Pulse Rate [55-90 bpm] 96 bpm *H* (11/19/24 8:00 PM) 74 bpm (11/19/24 3:30 PM) 78 bpm (11/19/24 8:35 AM) Body Mass Index [18.5-24.99 kg/m2] 37.75 kg/m2 *>HHI* (11/14/24 8:07 AM) 36.71 kg/m2 *>HHI* (11/10/24 10:49 AM) 36.71 kg/m2 *>HHI* (11/09/24 8:19 PM) Blood Pressure [90-138/55-84 mm Hg] 115/77mm Hg (11/19/24 8:00 PM) 104/73mm Hg (11/19/24 8:35 AM) 107/58mm Hg (11/18/24 4:16 PM) Respiratory Rate [16-30 br/min] 18 br/min (11/19/24 8:00 PM) 18 br/min (11/19/24 8:35 AM) 18 br/min (11/19/24 4:01 AM) Temperature [96.8-100.4 DegF] 97.5 DegF (11/19/24 8:00 PM) 97.2 DegF (11/19/24 8:35 AM) 98.1 DegF (11/18/24 4:16 PM) Liters per Minute 3 L/min (11/19/24 8:00 PM) 3 L/min (11/19/24 8:35 AM) 3 L/min (11/18/24 4:16 PM) Mode of Delivery (Oxygen) Nasal cannula (11/19/24 8:00 PM) Nasal cannula (11/19/24 8:35 AM) Nasal cannula (11/18/24 4:16 PM) Blood pressure sites Arm, right (11/19/24 8:00 PM) Arm, right (11/19/24 8:35 AM) Arm, right (11/18/24 4:16 PM) Temperature Route Oral (11/19/24 8:00 PM) Oral (11/19/24 8:35 AM) Oral (11/18/24 4:16 PM) Dry Weight 148.8 kg (11/11/24 6:29 AM) 143.9 kg (11/09/24 8:19 PM) Weight Obtained Via Bed scale (11/18/24 4:00 AM) Dry Weight Obtained Via Bed scale (11/11/24 6:29 AM) Social History Social History Type Response Smoking Status Former smoker, quit more than 30 days ago entered on: 09/01/23 Sex Male Sex Representation Male (finding) Clinical Note * Event Display: GG EGD Please click on pdf link to open report Admission evaluation note * Donell Silva DO: PERFORM Event Display: Admission Note Authored Date: Patient: ??BRIAN SAMANIEGO ? Age:??69 Years?Sex:??Male?:??1955?? History of Present Illness Brian is a 69-year-old gentleman with a past medical history of chronic lymphedema, wheelchair-bound status, atrial fibrillation, history of DVT and heart failure with reduced ejection fraction [facility] due to concern for melanotic stool.?? Patient apparently has a previous history of GI bleeds and noted to have bleeding ulcers when he was younger.?? Appears most recently he was hospitalized at [place] and was evaluated by GI team there and no interventionwas pursued during the hospital stay due to stable hemoglobin.?? Ultimately however [place] presentingto the hospital due to large amount of black/bloody stool per [facility]ci facility. ?? In the emergency department patient found to be intermittently hypotensive but responsive to fluid and otherwise was placed on 2 L by nasal cannula but I do not see any documented desaturations.?? Laboratories were notable for a hemoglobin of 7.1 which is lower than previous hemoglobin a week ago of 7.9 with other cell lines stable.?? Additionally he was noted to be mildly hyponatremic, hypokalemic and continues to have a low albumin at 2.?? Patient has had a bowel movement in the emergency department that was dark brown per nursing but not laura tarry stool but not available for me to examine at time of evaluation. ?? At time of exam patient resting in bed.?? He is noted to have a large wound on his buttocks but is otherwise denying any signs of active bleeding or further melanotic stool.?? He does continue to be intermittently hypotensive particularly when sleeping but blood pressures rise when he wakes up and has been given 2 boluses to good effect.?? Ultimately wound care consult be placed for evaluationof sacral wound and additionally will place consultation to gastroenterology team again due to reported melanotic stools.?? Of additional note patient does have a UA with WBCs, leukocytes and heavy bacteria but only symptom is some increasing swelling in his groin he is otherwise denying dysuria orchange in urinary frequency.?? Patient admitted for evaluation of GI bleed as well as ongoing episodes of hypotension. Review of Systems CONSTITUTIONAL: ??Denies any fever, chills EYES:??Denies any changes to vision. HEENT: Denies any OTT. CV:??Denies any CP, palpitations. PULM: Denies any SOB, wheezing, cough. ABD: Denies any abdominal pain, N/V. : Denies dysuria.??Admits??to some swelling?? MS: Denies any joint or muscle pain, falls. NEURO: Denies any focal??weakness, numbness PSYCH: Denies any depression or anxiety.? A full review of systems was completed and is otherwise negative except as mentioned in history of present illness. Objective Vital Signs?? Temperature: 97.4 DegF (11/09/24 18:33:00) Temperature Route: Axillary (11/09/24 18:33:00) Pulse Rate: 79 bpm (11/09/24:23:00) Respiratory Rate: 19 br/min (11/09/24:23:00) Systolic Blood Pressure: 103 mm Hg (11/09/24:23:00) Diastolic Blood Pressure: 70 mm Hg (11/09/24:23:00) Mean Arterial Pressure: 73 mm Hg (11/09/24 18:18:00) Pulse Pressure: 33 mm Hg (11/09/24:23:00) Oxygen Saturation: 95 % (11/09/24:23:00) Liters per Minute: 2 L/min (11/09/24 19:23:00) Mode of Delivery (Oxygen): Nasal cannula (11/09/24 19:23:00) Early Warning Score: 7 (11/09/24 20:10:51) ? Physical Exam General Appearance: NAD. Eyes:??No scleral icterus. ENT: ??MM moist. Cardiovascular: RRR S1 and S2 Respiratory: ??Breath sounds clear GI: Soft. Nontender and nondistended.? MS:?? Chronic Lymphedema??of LE Skin:??Sacral??wound??as seen in??multimedia Neuro: ??No slurred speech. Moving upper and lower extremities spontaneously. Assessment/Plan Assessment:??Brina is a 69-year-old gentleman with a past medical history of chronic lymphedema, wheelchair-bound status, atrial fibrillation, history of DVT and heart failure with reduced ejectionfraction who presented from his [facility] facility due to concern for melanotic stool.??Patient will be admitted for evaluation by gastroenterology team as well as initiated on antibiotics for treatment of concern of urinary tract infection. ?? GI bleed (K92.2) Anemia (D64.9) Patient coming from facility due to reported melanotic stools.??He has not had an episode of melanotic stool here and although blood pressures have been soft and he has been hemodynamically stable and as such will not emergently look for GI intervention and continue to closely monitor H&H.??He has had an ongoing history of this previously and was evaluate by gastroenterology multiple times before. -??Trend H&H -??Continue PPI -??Transfusion for hemoglobin less than 7 -??Monitor bowel movements for melanotic stool over blood -??GI consult placed -??Apixaban held -??Continue iron supplementation ?? Urinary tract infection (N39.0):?? Patient noted to have a UA positive for bacteria as well as leukocyte esterase.??Notably is denyingdysuria but does note increased swelling in his groin and he is unsure if his urinary frequency haschanged and ultimately we will treat for urinary tract infection as this also could be contributingto hypotension as his hemoglobin is largely stable from previous hospitalizations. ??? Start ceftriaxone ??? Monitor infectious symptoms ??? Continue tamsulosin ?? Decubitus ulcer of sacral area (L89.159):?? Patient has a large ulcer that was seen by surgery just over a week ago.??Ultimately will place wound care consult for evaluation of wound care recommendations but do not believe needs surgery to seeagain at this time given recent evaluation. ??? Wound care consultation ?? Atrial fibrillation (I48.91):??Continue digoxin, holding home apixaban in the setting of concern for GI bleed Heart failure with reduced ejection fraction (I50.20):??Continue home dapagliflozin.??Holding Lasixand Entresto in the setting of hypotension ?? VTE Prophylaxis:??On hold in the setting of GI bleed Code Status:??Full ? Histories Allergies Allergies ?(Active and Proposed Allergies Only) aspirin? (Severity: Unknown severity, Onset: Unknown) ?Reactions: Aspirin adverse reaction, Aspirin adverse reaction, upset stomach penicillins? (Severity: Unknown severity, Onset: Unknown) ?Reactions: rash ? Past Medical History/Problem List Active Problems(2) Lymphedema of leg Obese class II History of DVT Heart failure with reduced ejection fraction Atrial fibrillation ? Social History Alcohol Details:??Use: Never. Home/Environment Details:??Living situation: [facility]. ??Other: [facility]. Substance Abuse Details:??Use: Never. Tobacco Details:??Use: Former smoker, quit more than 30 days ago. ? Family History Grandfather diabetes ? Medications Home Medications Acetaminophen (acetaminophen 325 mg oral tablet)?975?Milligram?By Mouth?Every 6 hours?650?2?tablet?Every 4 hours?as needed?as needed for fever/pain?4 times a day Albuterol/Ipratropium (albuterol-ipratropium 3 mg-0.5 mg/3 ml inhalation solution)?3?Milliliter?Neb?4 times a day?as needed?Wheezing/Shortness of Breath apixaban (Eliquis 5 mg oral tablet)?1?tab(s)?5?Milligram?By Mouth?2 times a day Bisacodyl (Dulcolax 10 mg rectal suppository)?1?suppository(ies)?10?Milligram?Rectall y?Daily?as needed?as needed for constipation Brimonidine Ophthalmic (brimonidine 0.2% ophthalmic solution)?1?Drops?Eyes, Both?2 times a day dapagliflozin (dapagliflozin 10 mg oral tablet)?10?Milligram?By Mouth?Daily?1?tab(s) Digoxin (Digox 125 mcg (0.125 mg) oral tablet)?1?tab(s)?125?Microgram?By Mouth?Daily Docusate-Senna (Senna Plus 50 mg-8.6 mg oral tablet)?2?tab(s)?By Mouth?Daily Duloxetine (duloxetine 20 mg oral enteric coated capsule)?20?Milligram?By Mouth?2 timesa day?1?capsule Ferrous Sulfate (ferrous sulfate 325 mg oral enteric coated tablet)?325?Milligram?By Mouth?Daily?1?tablet Furosemide (Lasix 40 mg oral tablet)?40?Milligram?By Mouth?2 times a day?1?tablet Gabapentin (gabapentin 100 mg oral capsule)?200?Milligram?By Mouth?2 times a day?2?capsule Lactulose (lactulose 10 gm/15 ml oral syrup)?15?Milliliter?10?gram?By Mouth?Daily Melatonin (melatonin 3 mg oral tablet)?2?tab(s)?6?Milligram?By Mouth?Daily at bedtime?as needed?for insomnia Milk of Magnesia (Milk of Magnesia 8% oral suspension)?30?Milliliter?2.4?gram?By Mouth?Daily?as needed?for constipation Multivitamin With Minerals (Multivit Therapeutic/Minerals Tablet)?1?tab(s)?By Mouth?Daily nalOXONE (nalOXONE / Narcan 4mg Nasal Wentworth (OP))?0.4?Milligram?Once?as needed?as needed?may repeat every 2 to 3 minutes until patient responds Omeprazole (omeprazole 20 mg oral delayed release tablet)?1?tab(s)?20?Milligram?By Mouth?2 times a day Oxybutynin (oxybutynin 5 mg/24 hours oral tablet, extended release)?5?Milligram?By Mouth?Daily Oxycodone (oxyCODONE 5 mg oral tablet)?5?Milligram?1?tablet?By Mouth?Every 6 hours?as needed?as needed for pain Potassium Chloride (potassium chloride 20 mEq oral tablet, extended release)?1?tab(s)?20?Milliequivalent?By Mouth?Daily sacubitril-valsartan (Entresto 24 mg-26 mg oral tablet)?1?tab(s)?By Mouth?2 times a day Sodium Biphosphate-Sodium Phosphate (Fleet Enema 19 gm-7 gm rectal enema)?1?Each?Rectally?Once?as needed?for constipation Tamsulosin (tamsulosin 0.4 mg oral capsule)?0.4?Milligram?By Mouth?Daily?1?capsule ? Results Recent Labs BLOOD COUNT & DIFF WBC 4.7 k/mm3 ()?? 11/09/2024 10:59 RBC 2.77 m/mm3 (Low)?? 11/09/2024 10:59 Hgb 7.1 Gm/dL (Low)?? 11/09/2024 10:59 Hct 24.9 % (Low)?? 11/09/2024 10:59 MCV 89.9 femtoliters ()?? 11/09/2024 10:59 MCH 25.6 pg (Low)?? 11/09/2024 10:59 MCHC 28.5 Gm/dL (Low)?? 11/09/2024 10:59 Platelet Count 187 k/mm3 ()?? 11/09/2024 10:59 RDW-SD 62.2 femtoliters (High)?? 11/09/2024 10:59 MPV 9.2 femtoliters (Low)?? 11/09/2024 10:59 Nucleated RBC (Automated) 0.0 #/100 WBC'S ()?? 11/09/2024 10:59 Abs. NRBC 0.0 k/mm3 ()?? 11/09/2024 10:59 Abs. Neut 2.9 k/mm3 ()?? 11/09/2024 10:59 Abs. Lymph 1.2 k/mm3 ()?? 11/09/2024 10:59 Abs. [place]et 0.3 k/mm3 (Low)?? 11/09/2024 10:59 Abs. Eo 0.2 k/mm3 ()?? 11/09/2024 10:59 Abs. Baso 0.0 k/mm3 ()?? 11/09/2024 10:59 Neut % 62.7 % ()?? 11/09/2024 10:59 Lymph % 26.2 % ()?? 11/09/2024 10:59 Burnet % 6.7 % ()?? 11/09/2024 10:59 Eos % 3.6 % ()?? 11/09/2024 10:59 Baso % 0.6 % ()?? 11/09/2024 10:59 Imm Gran 0.2 % ()?? 11/09/2024 10:59 Abs. Imm Gran 0.0 k/mm3 ()?? 11/09/2024 10:59 ?? CHEM GENERAL Sodium 146 mmol/L (High)?? 11/09/2024 10:59 Potassium 3.5 mmol/L (Low)?? 11/09/2024 10:59 Chloride 109 mmol/L (High)?? 11/09/2024 10:59 Bicarbonate Level 32 mmol/L (High)?? 11/09/2024 10:59 Anion Gap 5 ()?? 11/09/2024 10:59 Glucose Level 132 mg/dL (High)?? 11/09/2024 10:59 BUN 36 mg/dL (High)?? 11/09/2024 10:59 Creatinine-Blood 0.77 mg/dL ()?? 11/09/2024 10:59 Estimated GFR Creatinine 96 ML/MIN/1.73 M2 ()?? 11/09/2024 10:59 Calcium 9.2 mg/dL ()?? 11/09/2024 10:59 Magnesium 1.9 mg/dL ()?? 11/09/2024 10:59 Protein, Total 7.2 Gm/dL ()?? 11/09/2024 10:59 Albumin 2.0 Gm/dL (Low)?? 11/09/2024 10:59 AG Ratio 0.4 ()?? 11/09/2024 10:59 Alkaline Phosphatase 49 units/L ()?? 11/09/2024 10:59 Lipase 17 units/L ()?? 11/09/2024 10:59 AST (SGOT) 14 units/L ()?? 11/09/2024 10:59 ALT (SGPT) 9 units/L ()?? 11/09/2024 10:59 Bilirubin, Total 0.3 mg/dL ()?? 11/09/2024 10:59 Lactate 2.0 mmol/L ()?? 11/09/2024 10:59 ?? UA/URINALYSIS Appear/Color, Urine YELLOW ()?? 11/09/2024 11:35 Specific [place], Urine 1.022 ()?? 11/09/2024 11:35 pH, Urine 5.5 ()?? 11/09/2024 11:35 Albumin, Urine TRACE (Abnormal)?? 11/09/2024 11:35 Glucose, Urine 1+ (Abnormal)?? 11/09/2024 11:35 Ketones, Urine NEGATIVE ()?? 11/09/2024 11:35 Bilirubin, Urine NEGATIVE ()?? 11/09/2024 11:35 Hemoglobin, Urine NEGATIVE ()?? 11/09/2024 11:35 Nitrite, Urine NEGATIVE ()?? 11/09/2024 11:35 Leukocyte, Urine 2+ (Abnormal)?? 11/09/2024 11:35 Urobilinogen 2 mg/dL (Abnormal)?? 11/09/2024 11:35 WBC's, Urine 36 /HPF (High)?? 11/09/2024 11:35 RBC's, Urine 1 /HPF ()?? 11/09/2024 11:35 Bacteria HEAVY HPF (Abnormal)?? 11/09/2024 11:35 Squamous Epith 1 /HPF ()?? 11/09/2024 11:35 Hyaline Cast 4 LPF (High)?? 11/09/2024 11:35 Mucus SLIGHT /LPF ()?? 11/09/2024 11:35 ? Cardiology * Event Display: Cardiac Rhythm Strips Authored Date: * Event Display: Cardiac Rhythm Strips Authored Date: * Event Display: Cardiac Rhythm Strips Authored Date: Hospital Progress note * Sarina Castellanos RN: PERFORM, SIGN, VERIFY Event Display: Progress Note Hospital Authored Date: Patient: BRIAN SAMANIEGO Age: 69 years Sex: Male : 1955 Associated Diagnoses: None Author: Sarina Castellanos RN Findings Problem Related to Alteration in Gastrointestinal : Alteration in Gastrointestinal Func/new 11/19/2024 16:00 EST Alteration in GI status Related to C Diff, Diarrhea, Gastric Hemorrhage Goals & Outcomes, Gastrointestinal Establish a regular pattern of elimination for pt, Nutritional intake is adequate for metabolic needs, Pt will achieve normal/improved fluid balance, Pt will maintain adequate GI function appropriate for pt, Pt will maintain normal elimination patterns, Pt will resume/maintain adequate hemodynamic status, Gastric drainage will exhibit progressive clearing, Tissue perfusion will return to baseline Interventions, Gastrointestinal Assess/monitor abdomen for distention, tenderness, Assess/monitor bowel pattern, bowel sounds, flatus, Assess/monitor number of bowel movements, Assess/monitor color, quantity, quality, consistency of stoo, Assess/monitor intake & output, Assess if pt tolerating diet, Assess & monitor effectiveness of antibiotics, Encourage PO fluids, Isolation as per policy, Identify cause of incontinence BH Goals/Interventions, Gastrointestinal Yes Gastrointestinal, Problem Start 11/17/2024 23:06 Reviewed plan with, Gastrointestinal Patient Patient Progression, Gastrointestinal Pt progressing according to plan . Evaluation Patient A&Ox3. No c/o pain throughout the day. Wound care not done due to late delivery of Vashe from pharmacy. Clear lung sounds, on 3L NC. Patient orderd for d/c, awaiting [facility] arrival. Incontinent of bowel, diaz catheter removed successfully, patient voided sanguinous into urinal, attending provider made aware, will continue to monitor. Will remove IV access once [facility] arrives. Patient able to make needs known, call patton within reach. Hourly rounding done. * Alfreda Arteaga RN O: PERFORM, SIGN, VERIFY Event Display: Progress Note Hospital Authored Date: Patient: BRIAN SAMANIEGO Age: 69 years Sex: Male : 1955 Associated Diagnoses: None Author: Alfreda Arteaga RN Findings Problem Related to Alteration in Gastrointestinal : Alteration in Gastrointestinal Func/new 11/18/2024 5:00 EST Alteration in GI status Related to Diarrhea, Gastric Hemorrhage Goals & Outcomes, Gastrointestinal Establish a regular pattern of elimination for pt, Nutritional intake is adequate for metabolic needs, Pt will achieve normal/improved fluid balance, Pt will maintain adequate GI function appropriate for pt, Pt will maintain normal elimination patterns, Pt will resume/maintain adequate hemodynamic status, Gastric drainage will exhibit progressive clearing, Tissue perfusion will return to baseline Interventions, Gastrointestinal Assess/monitor abdomen for distention, tenderness, Assess/monitor abdominal girth & bowel function, Assess/monitor bowel pattern, bowel sounds, flatus, Assess/monitor number of bowel movements, Teach Pt/caregiver on bowel elimination interventions, Teach Pt/caregiver re: importance of bowel regime, Teach Pt/caregiver re: nutritional intake & dietary restrict, Teach/encourage deep breath & cough exercises, Teach/encourage use of incentive spirometer Goals/Interventions, Gastrointestinal Yes Gastrointestinal, Problem Start 11/17/2024 23:06 Reviewed plan with, Gastrointestinal Patient Patient Progression, Gastrointestinal Pt progressing according to plan . Narrative/Incidental patient is alert and oriented x 3 able to make needs know. denies pain, dizziness, chest pain and nausea/ vomiting. patient has 2 episodes of Diarrhea, incontinent care given. medication given per order. wound care done. lungs sounds clear/ dim. normal bowel sounds in all quarants. V- Paced on tele. on 3 L NC. safety maintained call patton within reach. hourly rounds done. . Discharge Information Case Management Discharge Plan : Case Management Discharge Plan Data 11/15/2024 12:27 EST Discharge Level of Care at Discharge penitentiary facility Discharge Nursing Homes/Rehab Facilities [facility] Discharge Transportation Arranged [facility] [address] [place] [address] Mode of Transportation Arranged Ambulance Agency [facility] admissions Service Categories #1 Penitentiary, Public Health Nutritionist 11/12/2024 13:05 EST Discharge Nursing Homes/Rehab Facilities [facility] Rehabilitation Discharge : Rehab Discharge Index 11/15/2024 10:39 EST Full chart review completed Not Done: Task Duplication (Not Done) * Joselyn Miner MD: PERFORM Event Display: Progress Note Hospital Authored Date: [id number] Patient: ??BRIAN SAMANIEGO ? Age:??69 Years?Sex:??Male?:??1955?? Subjective ?? Prior notes reviewed Discussed with RN and machine adjuster leader case trim in the room No significant overnight event Diarrhea seems to have improved??stool smear today ?? No labs today Patient seen later in the day, Very pleasant??elderly man??that says overall he is feeling well No??fever chills, nausea vomiting or diarrhea, ?? Sleeping well,??he is eager to back to his [facility] facility ?? Review of Systems Rest of review??system negative Objective Measurements?? Height: 198 cm (11/18/24) Weight: 149.4 kg (11/18/24) Dry Weight: 148.8 kg (11/11/24) Body Mass Index:??37.75 kg/m2??Critical (11/14/24) ? Vital Signs?? Temperature: 98.1 DegF (11/18/24 16:16:00) Temperature Route: Oral (11/18/24 16:16:00) Pulse Rate: 76 bpm (11/18/24 16:16:00) Heart Rate Monitored: 69 bpm (11/17/24 20:00:22) Respiratory Rate: 18 br/min (11/18/24 16:16:00) Systolic Blood Pressure: 107 mm Hg (11/18/24 16:16:00) Diastolic Blood Pressure: 58 mm Hg (11/18/24 16:16:00) Blood pressure sites: Arm, right (11/18/24 16:16:00) Mean Arterial Pressure: 74 mm Hg (11/18/24 16:16:00) Pulse Pressure: 49 mm Hg (11/18/24 16:16:00) Oxygen Saturation: 97 % (11/18/24 16:16:00) Liters per Minute: 3 L/min (11/18/24 16:16:00) Mode of Delivery (Oxygen): Nasal cannula (11/18/24 16:16:00) Early Warning Score: 3 (11/18/24 16:38:32) ? Physical Exam _ 72 Hour Antibiotic History Active Antibiotics Calendar Day Last Administered First Administered Vancomycin??125 mg, By Mouth, Every 6 hours ?3 11/18/2024 16:36 11/16/2024 23:56 ? Results Abnormal Labs No lab data available. ? Assessment/Plan ?? 69 y.o. 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 bilateral femoral DVT (06/2023) on chronic apixaban (patient of Dr. Obrien at [facility]),??h.o. sick sinus syndrome / symptomatic bradycardia s/p pacemaker placement (2013, at [facility]), chronic??LE??lymphedema / recurrent episodes of LE cellulitis / h.o. left leg??abscess s/p I&D (05/2024, Dr. Hill),??GERD, glaucoma, BPH, OA / DJD, depression / anxiety, known colonic diverticuli & polyps (colonoscopy 03/2024, Dr. Hdz), h.o. sigmoid volvulus with ischemia s/p sigmoidcolectomy & primary anastomosis (03/2023, Dr. Moreno), h.o. right knee comminuted proximal tibia shaft & plateau fractures s/p ORIF (05/2006, Dr. Olivares) followed by hardware removal (09/2006, Dr. Olivares), who had just had a very recent hospitalization at [facility] (10/28 - 11/03/2024) with BRBPR / acute hypoxic respiratory failure / [id number]??biventricular mixed systolic & gradeIII diastolic CHF exacerbation (seen by Cardiology while there, Dr. 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 s/p 3 PRBC units transfused so far s/p EGD (11/10/2024, Dr. Hdz), c.w. esophagitis.?? Still with Melena. S/p Colonoscopy 11/14 : limted study due to incomlete prep but no active bleeding noted. Pt COVID-19 PUI 11/15. New Diarrhea??and diagnosis of Norovirus infection +/- C diff 11/16. ?? Melena / hematochezia / BRBPR (K92.1):??. GI bleed (K92.2):??. Acute on chronic blood loss anemia (D64.9):??. Hypotension (I95.9):??. Esophagitis (K20.90):??. GERD (gastroesophageal reflux disease) (K21.9):??. Colonic diverticulosis & polyps (K57.30):? H&H daxa =??6.8 / 23.7. s/p 3 PRBC units transfused so far. H+H stable now.?? s/p EGD (11/10/2024, Dr. Hdz), c.w. esophagitis.?? s/p attempted Colonoscopy 11/14 but prep was suboptimal. No bleeding or black stools observed duringlimited eval. Plan PPI + sucralfate Monitor H+H No plan for repeat Colonoscopy unless pt should bleed again ?? 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 Anasarca (R60.1):??. RVF (right ventricular failure) (I50.810):??. Pulmonary hypertension (I27.20):??. Severe tricuspid regurgitation (I07.1):??. Atrial fibrillation (I48.91):??. Pacemaker (Z95.0):??. Hypertension (I10):??. Hyperlipidemia (E78.5):? Increased dose Lasix at 80 mg po BID, adjust dose as needed Monitor BMP acubitril-valsartan on HOLD due to soft BP's / hypotension On digoxin + dapagliflozin Apixaban??resumed on 11/16 - HH has been stable ?? Urinary tract infection vs more likely ASB:? Urine cx with ESBL E.coli (resistant to Ceftriaxone that he was receiving so far).?? Observation off abrx ?? Decubitus ulcer of buttocks??(L89.159):? Skin / wound care Proactive pressure off-loading / position changes ?? Lymphedema: Lasix 80 mg po BID, adjust dose as needed Compression as tolerated Daily skin care ?? BPH (benign prostatic hyperplasia) (N40.0): Tamsulosin ?? Depression with anxiety (F41.8):?Duloxetine ?? Glaucoma (H40.9):?eyedrops ?? Hx of deep venous thrombosis (Z86.718):??Apixaban ?? Norovirus infection:?? C diff positive: Difficult to distinguish if his diarrhea was due to C diff or more likely Norovirus. C diff could be colonization.?? Plan PO Vanc 125 mg??qid x 14 days Avoid unnecessary abrx Isolation. Diarrhea improving.? COVID-19 PUI 11/15: COVID??-19 PCR (-) 11/15 and 11/17. Test for COVID 11/19.? Isolation, can d/c if 11/19 (-) as well. ? Discharge Planning:??Back to SNF??- hopefully tomorrow ? Note * Joselyn Miner MD: PERFORM, MODIFY, MODIFY, MODIFY Event Display: Discharge/Transfer Note Hospital Authored Date: Patient: ??BRIAN SAMANIEGO ? Age:??69 Years?Sex:??Male?:??1955?? Patient Information Discharge Location: S1 Primary Care Physician: Katie David MD Admit Date/Time: 11/09/2024 13:32 Discharge Disposition Discharge Disposition: Penitentiary Facility/Rehab Discharge Diagnosis ?? 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 Acetaminophen (acetaminophen 325 mg oral tablet)?975?Milligram?By Mouth?Every 6 hours?650?2?tablet?Every 4 hours?as needed?as needed for fever/pain?4 times a day Albuterol/Ipratropium (albuterol-ipratropium 3 mg-0.5 mg/3 ml inhalation solution)?3?Milliliter?Neb?4 times a day?as needed?Wheezing/Shortness of Breath apixaban (Eliquis 5 mg oral tablet)?1?tab(s)?5?Milligram?By Mouth?2 times a day Bisacodyl (Dulcolax 10 mg rectal suppository)?1?suppository(ies)?10?Milligram?Rectall y?Daily?as needed?as needed for constipation Brimonidine Ophthalmic (brimonidine 0.2% ophthalmic solution)?1?Drops?Eyes, Both?2 times a day dapagliflozin (dapagliflozin 10 mg oral tablet)?10?Milligram?By Mouth?Daily?1?tab(s) Digoxin (Digox 125 mcg (0.125 mg) oral tablet)?1?tab(s)?125?Microgram?By Mouth?Daily Duloxetine (duloxetine 20 mg oral enteric coated capsule)?20?Milligram?By Mouth?2 timesa day?1?capsule Emollients, Topical (Vashe Topical Solution)?475?Milliliter?Topically?Daily Ferrous Sulfate (ferrous sulfate 325 mg oral enteric coated tablet)?325?Milligram?By Mouth?Daily?1?tablet Furosemide (Lasix 80 mg oral tablet)?80?Milligram?By Mouth?2 times a day Gabapentin (gabapentin 100 mg oral capsule)?200?Milligram?By Mouth?2 times a day?2?capsule Melatonin (melatonin 3 mg oral tablet)?2?tab(s)?6?Milligram?By Mouth?Daily at bedtime?as needed?for insomnia Milk of Magnesia (Milk of Magnesia 8% oral suspension)?30?Milliliter?2.4?gram?By Mouth?Daily?as needed?for constipation Multivitamin With Minerals (Multivit Therapeutic/Minerals Tablet)?1?tab(s)?By Mouth?Daily nalOXONE (nalOXONE / Narcan 4mg Nasal [place] (OP))?0.4?Milligram?Once?as needed?as needed?may repeat every 2 to 3 minutes until patient responds Oxybutynin (oxybutynin 5 mg/24 hours oral tablet, extended release)?5?Milligram?By Mouth?Daily Oxycodone (oxyCODONE 5 mg oral tablet)?5?Milligram?1?tablet?By Mouth?Every 6 hours?as needed?as needed for pain Pantoprazole (Protonix 40 mg oral delayed release tablet)?40?Milligram?By Mouth?Daily in AM Potassium Chloride (potassium chloride 20 mEq oral tablet, extended release)?1?tab(s)?20?Milliequivalent?By Mouth?Daily Sucralfate (Carafate 1 gm oral tablet)?1?gram?By Mouth?4 times a day Tamsulosin (tamsulosin 0.4 mg oral capsule)?0.4?Milligram?By Mouth?Daily?1?capsule Vancomycin (vancomycin 125 mg oral capsule)?125?Milligram?By Mouth?Every 6 hours?Doses over 125 mg require ID consult. Indication for Use: C. difficile colitis ? Medications Started ?? Sucralfate for 2 weeks Oral vancomycin for 2 weeks???end date 11/30 Medications Discontinued Holding Entresto due to hypotension???if blood pressures and kidney function stable can be restarted Holding bowel regimen due to diarrhea Doses Changed Lasix increased to 80 mg 2 times a day??PPI changed to 40 mg daily Allergies Allergies ?(Active and Proposed Allergies Only) aspirin? (Severity: Unknown severity, Onset: Unknown) ?Reactions: Aspirin adverse reaction, Aspirin adverse reaction, upset stomach penicillins? (Severity: Unknown severity, Onset: Unknown) ?Reactions: rash ? PCP Follow-Up/Heads-Up ?? Labs to check CBC/basic metabolic panel in 1 week Hospital Course ?? 69 y.o. gentleman, appearing older and frailer than his age,??a chronic longterm resident at [facility] x 8 years (chronically wheelchair-bound with chronic decubitus ulcers), with a h.o. 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 bilateral femoral DVT (06/2023) on chronic apixaban (patient of Dr. Obrien at [facility]),??h.o. sick sinus syndrome / symptomatic bradycardia s/p pacemaker placement (2013, at [facility]), chronic??LE??lymphedema / recurrent episodes of LE cellulitis / h.o. left leg??abscess s/p I&D (05/2024, Dr. Hill),??GERD, glaucoma, BPH, OA / DJD, depression / anxiety, known colonic diverticuli & polyps (colonoscopy 03/2024, Dr. Hdz), h.o. sigmoid volvulus with ischemia s/p sigmoidcolectomy & primary anastomosis (03/2023, Dr. Moreno), h.o. right knee comminuted proximal tibia shaft & plateau fractures s/p ORIF (05/2006, Dr. Olivares) followed by hardware removal (09/2006, Dr. Olivares), who had just had a very recent hospitalization at [facility] (10/28 - 11/03/2024) with BRBPR / acute hypoxic respiratory failure / fzahz-xs-auhcfdx??biventricular mixed systolic & gradeIII diastolic CHF exacerbation (seen by Cardiology while there, Dr. 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 s/p 3 PRBC units transfused so far s/p EGD (11/10/2024, Dr. Hdz), c.w. esophagitis.?? Had melena and unerwent??Colonoscopy 11/14 : limted study due to incomlete prep but no active bleeding noted. Pt COVID-19 PUI 11/15. New Diarrhea??and diagnosis of Norovirus infection +/- C diff 11/16. Otherwise stable from GI bleed standpoint? started on Eliquis and H&H has been stable ?? Melena / hematochezia / BRBPR (K92.1):??. GI bleed (K92.2):??. Acute on chronic blood loss anemia (D64.9):??. Hypotension (I95.9):??. Esophagitis (K20.90):??. GERD (gastroesophageal reflux disease) (K21.9):??. Colonic diverticulosis & polyps (K57.30):? H&H daxa =??6.8 / 23.7. s/p 3 PRBC units transfused so far. H+H stable now.?? s/p EGD (11/10/2024, Dr. Hdz), c.w. esophagitis.?? s/p attempted Colonoscopy 11/14 but prep was suboptimal. No bleeding or black stools observed duringlimited eval. H&H now stable Plan Pantoprazole 40 mg daily??+??continue with sucralfate??for 2 weeks No plan for repeat Colonoscopy unless pt should bleed again?? Repeat CBC in 1 week ?? 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 Anasarca (R60.1):??. RVF (right ventricular failure) (I50.810):??. Pulmonary hypertension (I27.20):??. Severe tricuspid regurgitation (I07.1):??. Atrial fibrillation (I48.91):??. Pacemaker (Z95.0):??. Hypertension (I10):??. Hyperlipidemia (E78.5):? Plan Increased dose Lasix at 80 mg po BID, adjust dose as needed Sacubitril-valsartan on HOLD due to soft BP's / hypotension???if blood pressure is stable can be resumed On digoxin + dapagliflozin Apixaban??resumed on 11/16 - HH has been stable ?? Urinary tract infection vs more likely ASB:? Urine cx with ESBL E.coli (resistant to Ceftriaxone that he was receiving so far).?? Observation off abrx Looks like Diaz catheter was placed??due to his work,??given no issues with voiding discontinued prior to discharge???will need to monitor for??retention. ??Patient says he has no issues with retention in the past ?? Decubitus ulcer of buttocks??(L89.159):? 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 right and left buttock wounds- Apply Vashe moistened gauze to wound bed. Leave in place x 10 minutes. Remove gauze and pat wound bed dry. Pack lightly with Aquacel AG. Cover with Mepilex foam dressing. Change daily and as needed for soilage/saturation 2. Continue use of low air loss mattress 3. Continue to turn and reposition every 2 hours and as needed 4. Continue to provide incontinence care and moisture management as needed 5. Continue to offload all bony prominences 6. Continue to float heels off of all surfaces 7. Continue to provide optimal nutritional support 8. Gaymar cushion to seat when/if OOB to chair ?? Proactive pressure off-loading / position changes ?? Lymphedema: Lasix 80 mg po BID, adjust dose as needed Compression as tolerated Daily skin care ?? BPH (benign prostatic hyperplasia) (N40.0): Tamsulosin ?? Depression with anxiety (F41.8):?Duloxetine ?? Glaucoma (H40.9):?eyedrops ?? Hx of deep venous thrombosis (Z86.718):??Apixaban ?? Norovirus infection:?? C diff positive: Difficult to distinguish if his diarrhea was due to C diff or more likely Norovirus. C diff could be colonization.?? Plan PO Vanc 125 mg??qid x 14 days???end date 11/30 Avoid unnecessary abrx Isolation. Diarrhea improving.? COVID-19 PUI 11/15: COVID??-19 PCR (-) 11/15 and 11/17. Test for COVID 11/19 - negative Off isolation ? Objective ?? Discussed with print project manager around No significant overnight event Patient overall feels well very eager to back to [facility] facility Eating well, no further??black or bloody stool, no labs today however her last H&H??and labs have been stable ?? Updated Nicolasa Goddard on day of DC Vital Signs?? Temperature: 97.2 DegF (11/19/24 08:35:00) Temperature Route: Oral (11/19/24 08:35:00) Pulse Rate: 78 bpm (11/19/24 08:35:00) Respiratory Rate: 18 br/min (11/19/24 08:35:00) Systolic Blood Pressure: 104 mm Hg (11/19/24 08:35:00) Diastolic Blood Pressure: 73 mm Hg (11/19/24 08:35:00) Blood pressure sites: Arm, right (11/19/24 08:35:00) Mean Arterial Pressure: 83 mm Hg (11/19/24 08:35:00) Pulse Pressure: 31 mm Hg (11/19/24 08:35:00) Oxygen Saturation: 98 % (11/19/24 08:35:00) Liters per Minute: 3 L/min (11/19/24 08:35:00) Mode of Delivery (Oxygen): Nasal cannula (11/19/24 08:35:00) Early Warning Score: 2 (11/19/24 08:36:18) ? . Physical Exam ?? Pleasant man,??no acute distress at rest, oriented x 3 Chest clear to auscultation Abdomen soft, bowel sound present Surgical Procedures Gastroscopy (EGD) Diagnostic 11/10/2024 11:49 Colonoscopy Diagnostic 11/14/2024 08:38 Pending Results Add On Lab Order ordered on 11/09/2024 Add On Lab Order ordered on 11/16/2024 Basic Metabolic Panel ordered on 11/15/2024 CBC w/ Differential ordered on 11/15/2024 COVID-19 (Novel Coronavirus), Rapid PCR ordered on 11/19/2024 Hold Lavender Tube (BB) ordered on 11/09/2024 Transfuse RBCs ordered on 11/10/2024 Transfuse RBCs ordered on 11/11/2024 Transfuse RBCs ordered on 11/12/2024 Type and Screen, Use Hold Lavender ordered on 11/10/2024 Follow-Up Appointments Added Follow Up ?Time Frame ?Comments Katie David MD?1 to 2 weeks Post Discharge Care Diet: ??Low Sodium (2 Gram) Diet ?? Activity: ??as tolerate ?? Wound Care: ??Wound Site: right and left buttock Daily Yes ?? Home Health Face to Face ^[facility] Results Discharge Labs BACTERIOLOGY Urine Culture Results Final report (Abnormal)?? 11/09/2024 11:35 Urine Culture Specimen Source URINE ()?? 11/09/2024 11:35 Urine Culture Isolate 1 Escherichia coli (Abnormal)?? 11/09/2024 11:35 Urine Cult Antimicrobial Susceptibility Comment ()?? 11/09/2024 11:35 ?? BLOOD BANK Blood Type A Positive ()?? 11/13/2024 20:09 Antibody Screen Negative ()?? 11/13/2024 20:09 RBC Unit ID [id number] ()?? 11/12/2024 10:32 RBC Available PT ()?? 11/12/2024 10:32 ?? BLOOD COUNT & DIFF WBC 3.9 k/mm3 (Low)?? 11/17/2024 02:53 RBC 2.90 m/mm3 (Low)?? 11/17/2024 02:53 Hgb 7.9 Gm/dL (Low)?? 11/17/2024 02:53 Hct 25.9 % (Low)?? 11/17/2024 02:53 MCV 89.3 femtoliters ()?? 11/17/2024 02:53 MCH 27.2 pg ()?? 11/17/2024 02:53 MCHC 30.5 Gm/dL (Low)?? 11/17/2024 02:53 Platelet Count 191 k/mm3 ()?? 11/17/2024 02:53 RDW-SD 58.8 femtoliters (High)?? 11/17/2024 02:53 MPV 9.1 femtoliters (Low)?? 11/17/2024 02:53 Nucleated RBC (Automated) 0.0 #/100 WBC'S ()?? 11/17/2024 02:53 Abs. NRBC 0.0 k/mm3 ()?? 11/17/2024 02:53 Abs. Neut 2.4 k/mm3 ()?? 11/17/2024 02:53 Abs. Lymph 1.1 k/mm3 ()?? 11/17/2024 02:53 Abs. Burnet 0.3 k/mm3 (Low)?? 11/17/2024 02:53 Abs. Eo 0.1 k/mm3 ()?? 11/17/2024 02:53 Abs. Baso 0.0 k/mm3 ()?? 11/17/2024 02:53 Neut % 61.1 % ()?? 11/17/2024 02:53 Lymph % 27.1 % ()?? 11/17/2024 02:53 Burnet % 8.2 % ()?? 11/17/2024 02:53 Eos % 2.8 % ()?? 11/17/2024 02:53 Baso % 0.5 % ()?? 11/17/2024 02:53 Imm Gran 0.3 % ()?? 11/17/2024 02:53 Abs. Imm Gran 0.0 k/mm3 ()?? 11/17/2024 02:53 ?? CARDIAC Nt-Probnp 3787 pg/mL (High)?? 11/13/2024 01:49 ? CHEM GENERAL Sodium 136 mmol/L ()?? 11/17/2024 02:53 Potassium 3.5 mmol/L (Low)?? 11/17/2024 02:53 Chloride 97 mmol/L (Low)?? 11/17/2024 02:53 Bicarbonate Level 35 mmol/L (High)?? 11/17/2024 02:53 Anion Gap 4 mmol/L ()?? 11/17/2024 02:53 Glucose Level 111 mg/dL (High)?? 11/17/2024 02:53 BUN 17 mg/dL ()?? 11/17/2024 02:53 Creatinine-Blood 0.68 mg/dL (Low)?? 11/17/2024 02:53 Estimated GFR Creatinine 100 ML/MIN/1.73 M2 ()?? 11/17/2024 02:53 Calcium 9.2 mg/dL ()?? 11/17/2024 02:53 Phosphorus 3.0 mg/dL ()?? 11/13/2024 01:49 Magnesium 1.7 mg/dL ()?? 11/16/2024 21:00 Protein, Total 7.0 Gm/dL ()?? 11/13/2024 01:49 Albumin 2.1 Gm/dL (Low)?? 11/13/2024 01:49 AG Ratio 0.4 ()?? 11/09/2024 10:59 Alkaline Phosphatase 47 units/L ()?? 11/13/2024 01:49 Lipase 17 units/L ()?? 11/09/2024 10:59 AST (SGOT) 13 units/L ()?? 11/13/2024 01:49 ALT (SGPT) 6 units/L ()?? 11/13/2024 01:49 Bilirubin, Total 0.3 mg/dL ()?? 11/13/2024 01:49 Bilirubin, Direct 0.1 mg/dL ()?? 11/13/2024 01:49 Bilirubin, Indirect 0.2 mg/dL ()?? 11/13/2024 01:49 Lactate 2.0 mmol/L ()?? 11/09/2024 10:59 ? HEME OTHER Hold Blue Top SPECIMEN DISCARDED AFTER 4 HOURS. ()?? 11/09/2024 10:59 ? LIPID STUDIES Cholesterol 69 mg/dL ()?? 11/13/2024 01:49 Triglycerides 33 mg/dL ()?? 11/13/2024 01:49 HDL Cholesterol 34 mg/dL (Low)?? 11/13/2024 01:49 LDL Cholesterol 28 mg/dL ()?? 11/13/2024 01:49 Non HDL Cholesterol 35 mg/dL ()?? 11/13/2024 01:49 ? MISC. CHEMISTRY Procalcitonin 0.08 ng/mL ()?? 11/13/2024 01:49 ? SEROLOGY INF DISEASE C.difficile Toxin INDETERMINATE (Abnormal)?? 11/16/2024 15:35 C. Difficile Toxin by PCR POSITIVE (Abnormal)?? 11/16/2024 15:35 ?? STOOL STUDIES GI PCR, Campylobacter NEGATIVE (N)?? 11/16/2024 15:35 GI PCR, Plesiomonas shigelloides NEGATIVE (N)?? 11/16/2024 15:35 GI PCR, Salmonella NEGATIVE (N)?? 11/16/2024 15:35 GI PCR, Vibrio NEGATIVE (N)?? 11/16/2024 15:35 GI PCR, Vibrio cholerae NEGATIVE (N)?? 11/16/2024 15:35 GI PCR, Yersinia enterocolitica NEGATIVE (N)?? 11/16/2024 15:35 GI PCR, Enteroaggregative E coli NEGATIVE (N)?? 11/16/2024 15:35 GI PCR, Enteropathogenic E coli NEGATIVE (N)?? 11/16/2024 15:35 GI PCR, Enterotoxigenic E coli NEGATIVE (N)?? 11/16/2024 15:35 GI PCR, Wsihm-pwgpe-mzftxaetx E coli NEGATIVE (N)?? 11/16/2024 15:35 GI PCR, Shigella/Enteroinvasive E coli NEGATIVE (N)?? 11/16/2024 15:35 GI PCR, Cryptosporidium NEGATIVE (N)?? 11/16/2024 15:35 GI PCR, Cyclospora cayetanensis NEGATIVE (N)?? 11/16/2024 15:35 GI PCR, Entamoeba histolytica NEGATIVE (N)?? 11/16/2024 15:35 GI PCR, Giardia lamblia NEGATIVE (N)?? 11/16/2024 15:35 GI PCR, Adenovirus F 40/41 NEGATIVE (N)?? 11/16/2024 15:35 GI PCR, Astrovirus NEGATIVE (N)?? 11/16/2024 15:35 GI PCR, Norovirus GI/GII POSITIVE (Abnormal)?? 11/16/2024 15:35 GI PCR, Rotavirus A NEGATIVE (N)?? 11/16/2024 15:35 GI PCR, Sapovirus NEGATIVE (N)?? 11/16/2024 15:35 ?? UA/URINALYSIS Appear/Color, Urine YELLOW ()?? 11/09/2024 11:35 Specific [place], Urine 1.022 ()?? 11/09/2024 11:35 pH, Urine 5.5 ()?? 11/09/2024 11:35 Albumin, Urine TRACE (Abnormal)?? 11/09/2024 11:35 Glucose, Urine 1+ (Abnormal)?? 11/09/2024 11:35 Ketones, Urine NEGATIVE ()?? 11/09/2024 11:35 Bilirubin, Urine NEGATIVE ()?? 11/09/2024 11:35 Hemoglobin, Urine NEGATIVE ()?? 11/09/2024 11:35 Nitrite, Urine NEGATIVE ()?? 11/09/2024 11:35 Leukocyte, Urine 2+ (Abnormal)?? 11/09/2024 11:35 Urobilinogen 2 mg/dL (Abnormal)?? 11/09/2024 11:35 WBC's, Urine 36 /HPF (High)?? 11/09/2024 11:35 RBC's, Urine 1 /HPF ()?? 11/09/2024 11:35 Bacteria HEAVY HPF (Abnormal)?? 11/09/2024 11:35 Squamous Epith 1 /HPF ()?? 11/09/2024 11:35 Hyaline Cast 4 LPF (High)?? 11/09/2024 11:35 Mucus SLIGHT /LPF ()?? 11/09/2024 11:35 Hold Urine Culture Testing available 48 hours from time of collection. ()?? 11/09/2024 11:35 ?? URINE OTHER Est Creatinine Clearance 130.52 mL/min ()?? 11/17/2024 03:40 ? VIROLOGY COVID-19 by RT-PCR NEGATIVE ()?? 11/17/2024 05:50 ? 35_ minutes spent on discharge * Lea Cline RN: PERFORM, SIGN, VERIFY, SIGN, MODIFY Event Display: Case Management Discharge Plan Authored Date: [id number] Patient: BRIAN SAMANIEGO Age: 69 years Sex: Male : 1955 Associated Diagnoses: None Author: Lea Cline RN Discharge Plan Case Management Discharge Plan : Case Management Discharge Plan Data 11/19/2024 10:13 EST Discharge Level of Care at Discharge penitentiary facility Discharge Nursing Homes/Rehab Facilities [facility] Discharge Transportation Arranged [facility] [address] [place] [address] Discharge Arranged Transport Date/Time 11/19/2024 14:00 Mode of Transportation Arranged Ambulance Name of Agency #1 [facility] Service Categories #1 Penitentiary * Lea Cline RN: PERFORM Event Display: Case Management Discharge Plan Authored Date: [id number] Transport via wheelchair Sarina Morley RN: PERFORM Event Display: Patient Education/Instruction Authored Date: [id number] Inpatient Adult Discharge Instructions. [address] [id number] Name: BRIAN SAMANIEGO : 1955?? Visit: 11/09/2024 13:32?? Current Date: 11/19/2024 18:21 ?? Account: [id number]?? Inpatient Adult Discharge Instructions We would like to thank you for allowing us to assist you with your healthcare needs. The following includes patient education materials and information regarding your injury/illness. Our entire staffstrives to provide an excellent experience for our patients and their families. PLEASE ENSURE YOU FOLLOW-UP PER THE INSTRUCTIONS BELOW! ?? YOUR OPINION IS IMPORTANT TO US! Please complete the survey you may receive by mail or email. Your feedback will be used to make improvements to the healthcare experiences of our patients and their families. Surveys are administered by [employer] ?? If further treatment with your primary care physician or another doctor is recommended, it is important for you to keep the appointment. Call your primary care physician or return to the Emergency Department immediately if your condition worsens, fails to improve, or new symptoms develop. If you need to find a doctor, you can call [facility] Link for a referral at [phone] or toll free at [phone]) or log in to [email or web address].. ?? [facility], in keeping with [facility] guidance, no longer requires face masks for staff, patientsor visitors in most situations. Similiar to time spent indoors at other locations, there is the chance that you were exposed to repiratory viruses during your time with us (such as flu or COVID-19). If you develop symptoms concerning for a viral respiratory infection, please seek testing (and treatment if indicated) from your medical provider or home test kit. ?? You can view and manage your care through the patient portal or by using a health care sandra of your choosing. [employer] is a website that allows you to securely view your medical information including your hospital discharge summary, office visit summaries, medications and follow-up visits. You can also request appointments, renew medications, and request access to your medical information using a health care sandra of your choosing, or just ask a question. You can enroll at [email or web address] or register during your next office visit. You have been discharged from [facility], Patient Care Unit: S1??. If you have any questions regarding these instructions, including results of studies pending, afteryou leave, please call us and we will be happy to assist you 15/05. [facility] Your Care Team Attending Physician Joselyn Miner MD?? Consulting Providers Joselyn Miner MD?? 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 / reduced LVEF Acute on chronic blood loss anemia Anasarca Atrial fibrillation BPH (benign prostatic hyperplasia) Colonic diverticulosis & polyps Decubitus ulcer of sacral area Depression with anxiety Esophagitis GERD (gastroesophageal reflux disease) GI bleeding Glaucoma Heart failure with reduced ejection fraction Hx of deep venous thrombosis Hyperlipidemia Hypertension Melena / hematochezia / BRBPR Pacemaker Pulmonary hypertension RVF (right ventricular failure) Severe tricuspid regurgitation Urinary tract infection Tests Performed Below is a partial list of the tests performed during your hospitalization. You may have had other tests and procedures not included in this list. Please discuss all test results with your provider. Basic Metabolic Panel BUN C diff PCR, w Rfx Toxin/Ag C. DIFFICILE TOXIN CBC CBC w/ Differential Comprehensive Metabolic Panel COVID-19 (Novel Coronavirus), Rapid PCR Creatinine Electrolytes GI Profile, Stool, PCR H + H Hold Blue Top Tube Lactate Level LFT's Lipase Lipid Panel Lytes MAGNESIUM Phosphorus Level Potassium Level ProBNP Procalcitonin Level Type and Screen Urinalysis w/hold for Urine Culture Urine Culture Result Urine Culture, Routine Add On Lab Order (Lab Add On Order)?? B Type Natriuretic Peptide (NT-proBNP) (ProBNP)?? BUN?? Basic Metabolic Panel?? C. difficile Rapid Toxin Assay (C. DIFFICILE TOXIN)?? C.diff PCR, w Rfx Toxin/Ag (C diff PCR, w Rfx Toxin/Ag)?? CBC?? CBC w/ Differential?? COVID-19 (Novel Coronavirus), Rapid PCR?? Comprehensive Metabolic Panel?? Creatinine?? Electrolytes (Lytes)?? GI Profile, Stool, PCR?? Hepatic Function Panel (LFT's)?? Hgb + Hct (H + H)?? Hold Blue Top Tube?? Hold Lavender Tube (BB)?? Lactic Acid Level (Lactate Level)?? Lipase?? Lipid Panel?? Magnesium Level (MAGNESIUM)?? Phosphorus Level?? Potassium Level?? Procalcitonin Level?? Transfuse RBCs?? Type and Screen?? Type and Screen, Use Hold Lavender?? Urinalysis w/hold for Urine Culture?? Urine Culture (Urine Culture, Routine)?? Urine Culture Result?? Primary Care Provider Katie David MD? Advance Directive Health Care Proxy on File Yes - Health Care Proxy Yes - [facility] Discharge Vitals Temperature: 97.2 DegF Height: 198 cm Pulse Rate: 74 bpm Weight: 149.4 kg Respiratory Rate: 18 br/min Body Mass Index:??37.75 kg/m2??Critical Systolic Blood Pressure: 104 mm Hg Body surface area: 2.85 Diastolic Blood Pressure: 73 mm Hg ?? Oxygen Saturation: 98 % ?? Studies Pending All studies ordered during this hospital stay have been completed unless listed below. Please discuss all pending results with your provider listed above in these instructions. ?? Add On Lab Order (Lab Add On Order)?? Basic Metabolic Panel?? CBC w/ Differential?? Hold Lavender Tube (BB)?? Transfuse RBCs?? Type and Screen, Use Hold Lavender?? What to do next Instructions From Your Doctor ?? Orders??:Low Sodium (2 Gram) Diet :as tolerate Care:Wound Site: right and left buttock ??Daily ??Yes? 11/19/24 10:24:00 EST?? Prescriptions??, ??11/19/24 10:24:00 EST?? You Need to Schedule the Following Appointments Follow Up with??Frankie WIGGINS, Katie Elliott When:??Within 1 to 2 weeks Where: [address] [place] [address] [address]1 [place] [address]- Discharge Medications BRIAN SAMANIEGO :1955 Visit Date:11/09/2024 Medications: Please continue your medications until treatment is completed or stopped by your provider. Medications not listed below should be discontinued. Discuss any questions related to medications with your provider. What How Much When Instructions Next Dose New Emollients, Topical (Vashe Topical Solution) 475 Milliliter Topically Daily 11/20 New Pantoprazole (Protonix 40 mg oral delayed release tablet) 40 Milligram Oral Daily in the morning 11/20 New Sucralfate (Carafate 1 gm oral tablet) 1 gram Oral 4 times a day 11/19 9pm New Vancomycin (vancomycin 125 mg oral capsule) 125 Milligram Oral Every 6 hours Doses over 125 mg require ID consult. Indication for Use: C. difficile colitis ?? 11/20 11pm Changed Bisacodyl (Dulcolax 10 mg rectal suppository) 1 suppository(ies) Per rectum Daily as needed for as needed for constipation As needed Changed Brimonidine Ophthalmic (brimonidine 0.2% ophthalmic solution) 1 Drops Both eyes Twice a day 11/19 9pm Changed Duloxetine (duloxetine 20 mg oral enteric coated capsule) 1 capsule Oral Twice a day 11/19 9pm Changed Ferrous Sulfate (ferrous sulfate 325 mg oral enteric coated tablet) 1 tab(s) Oral Daily 11/20 Changed Furosemide (Lasix 80 mg oral tablet) 80 Milligram Oral Twice a day 11/20 9pm Changed Gabapentin (gabapentin 100 mg oral capsule) 2 capsule Oral Twice a day 11/20 9pm Changed Oxycodone (oxyCODONE 5 mg oral tablet) 1 tab(s) Oral Every 6 hours as needed for Pain , Moderate As needed Changed Potassium Chloride (potassium chloride 20 mEq oral tablet, extended release) 1 tab(s) Oral Daily 11/20 Changed Tamsulosin (tamsulosin 0.4 mg oral capsule) 1 capsule Oral Daily 11/20 Changed apixaban (Eliquis 5 mg oral tablet) 1 tab(s) Oral Twice a day 11/19 9pm Changed dapagliflozin (dapagliflozin 10 mg oral tablet) 1 tab(s) Oral Daily 11/20 Unchanged Acetaminophen (acetaminophen 325 mg oral tablet) 2 tab(s) Oral 4 times a day as needed for as needed for fever/pain As needed Unchanged Albuterol/ Ipratropium (albuterol-ipratropium 3 mg-0.5 mg/ 3 ml inhalation solution) 3 Milliliter Nebulized inhalation 4 times a day as needed for Wheezing/Shortness of Breath As needed Unchanged Digoxin (Digox 125 mcg (0.125 mg) oral tablet) 1 tab(s) Oral Daily 11/20 Unchanged Melatonin (melatonin 3 mg oral tablet) 2 tab(s) Oral Daily at Bedtime as needed for for insomnia As needed Unchanged Milk of Magnesia (Milk of Magnesia 8% oral suspension) 30 Milliliter Oral Daily as needed for for constipation As needed Unchanged Multivitamin With Minerals (Multivit Therapeutic/ Minerals Tablet) 1 tab(s) Oral Daily 11/20 Unchanged nalOXONE (nalOXONE / Narcan 4mg Nasal [place] (OP)) 0.4 Milligram Once as needed for as needed may repeat every 2 to 3 minutes until patient responds ?? As needed Unchanged Oxybutynin (oxybutynin 5 mg/ 24 hours oral tablet, extended release) 5 Milligram Oral Daily 11/20 ?? What How Much When Comments Stop Taking Docusate-Senna (Senna Plus 50 mg-8.6 mg oral tablet) 2 tab(s) Oral Daily Stop Taking Lactulose (lactulose 10 gm/ 15 ml oral syrup) 15 Milliliter Oral Daily Stop Taking Omeprazole (omeprazole 20 mg oral delayed release tablet) 1 tab(s) Oral Twice a day Stop Taking sacubitril-valsartan (Entresto 24 mg-26 mg oral tablet) 1 tab(s) Oral Twice a day Stop Taking Sodium Biphosphate-Sodium Phosphate (Fleet Enema 19 gm-7 gm rectal enema) 1 Each Per rectum Once as needed for for constipation Prescription Given During Visit No new medications prescribed at time of discharge.?? Laboratory Results Below is a partial list of the most recent Laboratory test results done prior to this discharge. You may have had other tests and procedures not included in this list. Please discuss all test resultswith your provider. Est Creatinine Clearance - 130.52 mL/min (11/17/2024) RBC Available - PT (11/12/2024) RBC Unit ID - [id number] (11/12/2024) Basic Metabolic Panel (11/17/2024) ???Sodium - 136 mmol/L???Potassium - 3.5 mmol/L???Chloride - 97 mmol/L???Bicarbonate Level - 35 mmol/L???Anion Gap - 4 mmol/L???Glucose Level - 111 mg/dL???BUN - 17 mg/dL???Creatinine-Blood - 0.68 mg/dL???Estimated GFR Creatinine - 100 ML/MIN/1.73 M2???Calcium - 9.2 mg/dL BUN (11/13/2024) ???BUN - 22 mg/dL C diff PCR, w Rfx Toxin/Ag (11/16/2024) ???C. Difficile Toxin by PCR - POSITIVE C. DIFFICILE TOXIN (11/16/2024) ???C.difficile Toxin - INDETERMINATE CBC (11/14/2024) ???WBC - 3.5 k/mm3???RBC - 2.86 m/mm3???Hgb - 7.5 Gm/dL???Hct - 25.2 %???MCV - 88.1 femtoliters???MCH - 26.2 pg???MCHC - 29.8 Gm/dL???Platelet Count - 180 k/mm3???RDW-SD - 57.0 femtoliters???MPV - 9.1 femtoliters???Nucleated RBC (Automated) - 0.0 #/100 WBC'S???Abs. NRBC - 0.0 k/mm3 CBC w/ Differential (11/17/2024) ???WBC - 3.9 k/mm3???RBC - 2.90 m/mm3???Hgb - 7.9 Gm/dL???Hct - 25.9 %???MCV - 89.3 femtoliters???MCH - 27.2 pg???MCHC - 30.5 Gm/dL???Platelet Count - 191 k/mm3???RDW-SD - 58.8 femtoliters???MPV - 9.1 femtoliters???Nucleated RBC (Automated) - 0.0 #/100 WBC'S???Abs. NRBC - 0.0 k/mm3???Abs. Neut - 2.4 k/mm3???Abs. Lymph - 1.1 k/mm3???Abs. [place] - 0.3 k/mm3???Abs. Eo - 0.1 k/mm3???Abs. Baso - 0.0 k/mm3???Neut % - 61.1 %???Lymph % - 27.1 %???[place] % - 8.2 %???Eos % - 2.8 %???Baso % - 0.5 %???Imm Gran- 0.3 %???Abs. Imm Gran - 0.0 k/mm3 Comprehensive Metabolic Panel (11/09/2024) ???Sodium - 146 mmol/L???Potassium - 3.5 mmol/L???Chloride - 109 mmol/L???Bicarbonate Level - 32 mmol/L???Anion Gap - 5???Glucose Level - 132 mg/dL???BUN - 36 mg/dL???Creatinine-Blood - 0.77 mg/dL???Estimated GFR Creatinine - 96 ML/MIN/1.73 M2???Calcium - 9.2 mg/dL???Protein, Total - 7.2 Gm/dL???Albumin - 2.0 Gm/dL???AG Ratio - 0.4???Alkaline Phosphatase - 49 units/L???AST (SGOT) - 14 units/L???ALT (SGPT) - 9 units/L???Bilirubin, Total - 0.3 mg/dL COVID-19 (Novel Coronavirus), Rapid PCR (11/19/2024) ???COVID-19 by RT-PCR - NEGATIVE Creatinine (11/13/2024) ???Creatinine-Blood - 0.61 mg/dL???Estimated GFR Creatinine - 103 ML/MIN/1.73 M2 Electrolytes (11/10/2024) ???Sodium - 145 mmol/L???Potassium - 3.5 mmol/L???Chloride - 110 mmol/L???Bicarbonate Level - 32 mmol/L???Anion Gap - 3 GI Profile, Stool, PCR (11/16/2024) ???GI PCR, Campylobacter - NEGATIVE???GI PCR, Plesiomonas shigelloides - NEGATIVE???GI PCR, Salmonella - NEGATIVE???GI PCR, Vibrio - NEGATIVE???GI PCR, Vibrio cholerae - NEGATIVE???GI PCR, Yersinia enterocolitica - NEGATIVE???GI PCR, Enteroaggregative E coli - NEGATIVE???GI PCR, Enteropathogenic E coli - NEGATIVE???GI PCR, Enterotoxigenic E coli - NEGATIVE???GI PCR, Onose-ftixs-aaqyrvrgf E coli -NEGATIVE???GI PCR, Shigella/Enteroinvasive E coli - NEGATIVE???GI PCR, Cryptosporidium - NEGATIVE???GI PCR, Cyclospora cayetanensis - NEGATIVE???GI PCR, Entamoeba histolytica - NEGATIVE???GI PCR, Giardia lamblia - NEGATIVE???GI PCR, Adenovirus F 40/41 - NEGATIVE???GI PCR, Astrovirus - NEGATIVE???GIPCR, Norovirus GI/GII - POSITIVE???GI PCR, Rotavirus A - NEGATIVE???GI PCR, Sapovirus - NEGATIVE H + H (11/09/2024) ???Hgb - 7.3 Gm/dL???Hct - 25.5 % Hold Blue Top Tube (11/09/2024) ???Hold Blue Top - SPECIMEN DISCARDED AFTER 4 HOURS. Lactate Level (11/09/2024) ???Lactate - 2.0 mmol/L LFT's (11/13/2024) ???Protein, Total - 7.0 Gm/dL???Albumin - 2.1 Gm/dL???Alkaline Phosphatase - 47 units/L???AST (SGOT) - 13 units/L???ALT (SGPT) - 6 units/L???Bilirubin, Total - 0.3 mg/dL???Bilirubin, Direct - 0.1 mg/dL???Bilirubin, Indirect - 0.2 mg/dL Lipase (11/09/2024) ???Lipase - 17 units/L Lipid Panel (11/13/2024) ???Cholesterol - 69 mg/dL???Triglycerides - 33 mg/dL???HDL Cholesterol - 34 mg/dL???LDL Cholesterol- 28 mg/dL???Non HDL Cholesterol - 35 mg/dL Lytes (11/13/2024) ???Sodium - 142 mmol/L???Potassium - 3.6 mmol/L???Chloride - 108 mmol/L???Bicarbonate Level - 30 mmol/L???Anion Gap - 4 MAGNESIUM (11/16/2024) ???Magnesium - 1.7 mg/dL Phosphorus Level (11/13/2024) ???Phosphorus - 3.0 mg/dL Potassium Level (11/16/2024) ???Potassium - 3.3 mmol/L ProBNP (11/13/2024) ???Nt-Probnp - 3787 pg/mL Procalcitonin Level (11/13/2024) ???Procalcitonin - 0.08 ng/mL Type and Screen (11/13/2024) ???Blood Type - A Positive???Antibody Screen - Negative Urinalysis w/hold for Urine Culture (11/09/2024) ???Appear/Color, Urine - YELLOW???Specific [place], Urine - 1.022???pH, Urine - 5.5???Albumin, Urine - TRACE???Glucose, Urine - 1+???Ketones, Urine - NEGATIVE???Bilirubin, Urine - NEGATIVE???Hemoglobin, Urine - NEGATIVE???Nitrite, Urine - NEGATIVE???Leukocyte, Urine - 2+???Urobilinogen - 2 mg/dL???WBC's, Urine - 36 /HPF???RBC's, Urine - 1 /HPF???Bacteria - HEAVY???Squamous Epith - 1 /HPF???Hyaline Cast - 4 LPF???Mucus - SLIGHT???Hold Urine Culture - Testing available 48 hours from time of collection. Urine Culture Result (11/09/2024) ???Urine Culture Isolate 1 - Escherichia coli???Urine Cult Antimicrobial Susceptibility - Comment Urine Culture, Routine (11/09/2024) ???Urine Culture Results - Final report???Urine Culture Specimen Source - URINE You will be contacted within 72 hours with your results. Allergies (NKA means No Known Allergies) aspirin??(upset stomach, Aspirin adverse reaction, Aspirin adverse reaction) penicillins??(rash) Problems Active Problems??(2) Lymphedema of leg?? Obese class II?? Education Materials Below is the list of Educational Leaflet Providered with your Discharge Instructions. Valuables and Belongings I fully understand and agree that [facility] accepts no responsibility for all my personal property including clothing, toilet articles, radios, jewelry, dentures, hearing aids, rings, money, or any other property that is in my possession or is brought to me after admission. I understand certain valuables may be placed in a hospital safe for a short period of time. I understand that the hospital is not liable for loss or damage due to accident, fire, or other natural occurrence while said property is in the safe. I accept full responsibility for any personal property that I keep with me, and will not hold the hospital responsible in case of loss or disappearance. I acknowledge that i have been encouraged to send valuables and belongings home. ?? Review of Valuable and Belonging List: With patient, With witness Possessions released to: no valuables in preop Date for Pt to Sign Valuables/Belongings: 11/17/24 22:48:00 ?? Other Discharge Information ? Case Management Discharge Plan?? Discharge Plan?? Discharge Agency Information?? Discharge Level of Care at Discharge: penitentiary facility [facility] Agency #1: [facility] Discharge Transportation Arranged: [facility] [address] [facility] ??[phone] Agency [facility]1: admissions Mode of Transportation Arranged: Ambulance Service Categories #1: Penitentiary Discharge Arranged Transport Date/Time: 11/19/24 14:00:00 ?? Discharge Nursing Homes/Rehab Facilities: [facility] ? Pulmonary Rehab Status?? Pulmonary Rehab Discharge Status?? Respiratory Rate: 18 br/min ? Common Emergency Awareness Tips IS IT A STROKE? Act FAST and Check for these signs: FACE Does the face look uneven? ARM Does one arm drift down? SPEECH Does their speech sound strange? TIME Call at any sign of stroke ?? Heart Attack Signs Chest discomfort: Most heart attacks involve discomfort in the center of the chest and lasts more than a few minutes, or goes away and comes back. It can feel like uncomfortable pressure, squeezing, fullness or pain. Discomfort in upper body: Symptoms can include pain or discomfort in one or both arms, back, neck, jaw or stomach. Shortness of breath: With or without discomfort. Other signs: Breaking out in a cold sweat, nausea, or lightheaded. Remember, MINUTES DO MATTER. If you experience any of these heart attack warning signs, call to get immediate medical attention! ?? Smoking can increase your chances of developing chronic health problems and can cause harmful effects to other family members in your house. If you smoke, you are strongly encouraged to quit. Please call [facility] [employer] Link at [phone] or [phone] ([phone]) or log in to [email or web address] for referrals to smoking cessation programs. ?? 865 Suicide & Crisis Lifeline is available 15/05 if you or someone you know needs to find a reason to keep living. By calling 759 you'll be connected to a skilled, trained counselor at a crisis center in your area. INPATIENT DISCHARGE INSTRUCTIONS SIGNATURE PAGE BRIAN SAMANIEGO Location:[facility] Registration Date and Time:11/09/2024 13:32 EST Primary Care Physician: Katie David MD, Attending Physician: Joselyn Miner MD, I BRIAN SAMANIEGO, have received the above patient education materials/instructions and have verbalized understanding. If ambulance or transport services are being used I further acknowledge beinggiven a choice of service. ?? If you need to contact me, please call me at this number: . Patient/Human Services Manager Name: Patient/Human Services Manager Signature: Relationship to Patient: Witness Name/Signature: Date: * Renetta Wheeler RN: VERIFY, PERFORM, SIGN Event Display: Case Management Discharge Plan Authored Date: [id number] Patient: BRIAN SAMANIEGO Age: 69 years Sex: Male : 1955 Associated Diagnoses: None Author: Renetta Wheeler RN Discharge Plan Case Management Discharge Plan : Case Management Discharge Plan Data 11/15/2024 12:27 EST Discharge Level of Care at Discharge penitentiary facility Discharge Nursing Homes/Rehab Facilities [facility] Discharge Transportation Arranged [facility] [address] [facility] Mode of Transportation Arranged Ambulance Agency [facility]1 admissions Service Categories #1 Penitentiary, Public Health Nutritionist 11/12/2024 13:05 EST Discharge Nursing Homes/Rehab Facilities [facility] * Event Display: Provider Clarification Note Please click on pdf link to open report * Event Display: Discharge/Transfer Note Hospital Authored Date: Consult note * Salud Pelaez RN: PERFORM, SIGN, VERIFY Event Display: Consultation Note Authored Date: Patient: BRIAN SAMANIEGO Age: 69 years Sex: Male : 1955 Associated Diagnoses: None Author: Salud Pelaez RN History of Presenting Problem Date of Service 11/13/2024 Reason for referral Pressure ulcer: Description Location: right buttock 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) Description: full thickness open skin lesion; exposed muscle and subcutaneous tissue Measurements: 15cm x 13cm x 5cm with undermining from 6-12 o'clock with a max depth of 4.5cm Drainage: large amount of serosanguineous drainage mixed with yellow opaque yellow drainage Odor: mild odor Edges: regular; defined; unattached 6-12 o'clock Periwound: intact; no erythema, induration or fluctuance Pain: endorses pain Goal of treatment: antimicrobial action; management of drainage; offload pressure; protect from moisture and friction; Vashe for cleansing which will assist with loosening contaminated exudate, slough and other foreign materials with the wound bed, as well as remove debris and microorganisms. . 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) Description: full thickness open skin lesion; exposed muscle and subcutaneous tissue Measurements: 4cm x 4cm x 2cm Drainage: large amount of serosanguineous drainage mixed with yellow/light green opaque yellow drainage Odor: mild odor Edges: regular; defined; attached Periwound: intact; no erythema, induration or fluctuance Pain: endorses pain Goal of treatment: antimicrobial action; management of drainage; offload pressure; protect from moisture and friction; Vashe for cleansing which will assist with loosening contaminated exudate, slough and other foreign materials with the wound bed, as well as remove debris and microorganisms. . right buttock left buttock Received wound RN consult to assess buttocks wounds and provide appropriate topical wound care recommendations. Patient recently admitted to [facility] from SNF due to melanotic stools and WILDER. Dx with GIB and hypotension. He has a PMH significant for GIB, chronic anemia, CAD, severe diastolic dysfunction, w/c bound, chronic lymphedema, afib, DVT and HF Upon entry into patient's room, he is found lying in bed, alert and oriented x 3. Role of wound RN is explained and he is amenable to continuing with consult and photodocumentation. He tells me that the wounds are managed at his SNF. They are changed every day by nursing but is unsure of what is being applied. States there is a disease education specialist who seems him every so often but cannot provide a frequency. Along with my colleague, patient is rolled onto his left side. The existing dressing to his right buttock wound is removed and wound is described above. He is then rolled onto his right side so the left buttock wound could be assessed. This is also described above. Due to the presence of yellow and/or green drainage, there is most likely bioburden and/or pseudomonas present in the wounds. Vashe will help eradicate this and the Aquacel will assist with antimicrobial action and management of drainage. Spoke with patient and direct care RN regarding etiology, topical recommendations and pressure injury prevention interventions. [place] text sent to Dr Za Blankenship. Of note, patient has a f/c in place and is incontinent of stool Recommendations: 1. right and left buttock wounds- Apply Vashe moistened gauze to wound bed. Leave in place x 10 minutes. Remove gauze and pat wound bed dry. Pack lightly with Aquacel AG. Cover with Mepilex foam dressing. Change daily and as needed for soilage/saturation 2. Continue use of low air loss mattress 3. Continue to turn and reposition every 2 hours and as needed 4. Continue to provide incontinence care and moisture management as needed 5. Continue to offload all bony prominences 6. Continue to float heels off of all surfaces 7. Continue to provide optimal nutritional support 8. Gaymar cushion to seat when/if OOB to chair Please reconsult wound RN for deterioration in wound/skin status. Plan Recommendations Nutrition Plan Consult Sales Representative Door To Door Maximize nutritional support Mobility Eliminate heel pressure Turn & reposition every 2-4 hours Low air loss bed in pressure relief settings Gaymar soft chair cushion Moisture Management Incontinence care Friction/Sheer Interventions Minimize sheer forces by lifting Utilize draw sheet or transfer board Patient Teaching Discussed plan of care with patient Discussed plan of care with RN Time spent 31-45 minutes * Mark Lombardo DO: PERFORM, MODIFY Event Display: Consultation Note Authored Date: [id number] Patient: ??BRIAN SAMANIEGO ? Age:??69 Years?Sex:??Male?:??1955?? Referrring Provider Donell Silva DO Chief Complaint from [facility]; history of GIB last a few months ago; staff noted black tarry stools this morning, a+ox4, no complaints of pain; on thinners; #18 LAC 12 lead-afib Reason for Consultation GI Bleed History of Present Illness ?? Brian Samaniego is a 69-year-old gentleman with a pertinent past medical history for chronic lymphedema, wheelchair bound status, atrial fibrillation, history of DVT and heart failure with reduced ejection fraction who presented to the [facility] emergency department in the setting of black stools.?? Patient has a prior history of GI bleeds with prior bleeding ulcers in the past.?? Patient recently had been hospitalized at [facility] and was evaluated by GI there with no intervention due tostable hemoglobin.?? Patient now presented from his nursing facility with concerns for black/bloodystools. ?? While in the emergency department patient was hypotensive with systolic blood pressure of 78 ed diastolic of 47.?? Patient's hypotension has been fluid responsive.?? Initial blood work has shown a hemoglobin of 7.1 with a hematocrit of 24.9.?? He is continued to reduce black/bloody bowel movements.?? Patient's chemistry panel showed BUN to creatinine bump with a BUN of 36 and a creatinine of 0.77.?? Is also found to have hypernatremia of 146 with hypokalemia of 3.5.?? Patient did have a recent colonoscopy done in March 2024 for concerns of rectal bleeding.?? At that time patient was found to have internal and external hemorrhoids, mild diverticulosis of the sigmoid as well as a 10 mm polyp in the ascending colon.?? Patient was seen at the bedside??and denied any abdominal pain, nausea or vomiting.?? He did mention that he has been having dark bloody stools. Review of Systems A complete review of systems has been performed??and determined to be negative unless otherwise noted above in the patient's??HPI. Physical Exam Vitals & Measurements T:??98.4?F?? TMIN:??97.4?F?? TMAX:??98.7?F?? HR:??65??(Monitored)?? RR:??12?? BP:??96/68??SpO2:??100%?? WT:??143.9??kg?? Constitutional: Alert, in no distress. Mental Status: A and O x4 Head: Normocephalic. Eyes: Extraocular muscles intact. Ear, Nose and Throat: Moist mucous membranes. Respiratory: Rhonchi Gastrointestinal: Abdomen soft, non-tender, non-distended. Neurologic: No focal neurological deficits. Musculoskeletal: Bilateral lower extremity edema. Assessment/Plan 69-year-old gentleman with a pertinent past medical history for chronic lymphedema, wheelchair bound status, atrial fibrillation, history of DVT and heart failure with reduced ejection fraction who presented to the [facility] emergency department in the setting of black stools.? #Melena #History of diverticulosis #History??of hemorrhoids ?? Patient presented??to [facility]??in the setting of having melena.?? There had been mention that he is also been taking NSAIDs.?? Melanotic??stools??have been witnessed however the patient's hemoglobin and hematocrit has remained at baseline.?? She has had a recent colonoscopy that had shown hemorrhoids, d iverticulosis and polyps.?? Given the elevated BUN to creatinine ratio and dark stools??primary concern is to rule out an upper GI??bleed.?? Differential includes peptic ulcer disease versus AVM??versus Dieulafoy lesion. ?? Recommendations: ?Maintain 2 large-bore IV lines. ?Restrict antithrombotic therapy to the extent acceptable from the point of thrombotic risk. ?Watch for evidence of active bleeding (drop in Hgb, hypotension, hematochezia, hematemesis). ?RBC transfusion if needed to keep Hgb > 7 gm/dL. ?NPO ?EGD in the OR today ?Protonix 40 mg IV BID ?GI Following ? Thank you for referring this patient to the Division of Gastroenterology, [facility] [place], [place]. ??I appreciate the opportunity to participate in the care of yourpatient, and would be happy to assist you in future. ?? (The above document was created using [employer] voice recognition software. As such, internet site designer errors may occur. Please contact the provider for additional questions and if clarification is needed.) ? Mark Lombardo, DO PGY-6 Gastroenterology Fellow [facility] Division of Gastroenterology [email or web address] ?? Attestation: Patient??was seen and discussed with the attending, Dr. Zoë Hdz. ?? Problem List/Past Medical History Ongoing Lymphedema of leg Obese class II Medications Inpatient Acetaminophen Tablet, 650 mg, By Mouth, Every 4 hours, PRN Bisacodyl Supp, 10 mg= 1 supp, Rectally, Daily, PRN Bolus NaCL 0.9% 500 mL, 500 mL, IV Infusion, Once brimonidine 0.2% ophthalmic solution, 1 drops, Eyes, Both, 2 times a day Ceftriaxone Inj, 1 Gm, IVPB, Every 24 hours Dapagliflozin Tablet, 10 mg, By Mouth, Daily digoxin 0.125 mg oral tablet, 0.125 mg, By Mouth, Daily Docusate Sodium Capsule, 100 mg= 1 capsule, By Mouth, 2 times a day, PRN Duloxetine, 20 mg, By Mouth, 2 times a day ferrous sulfate 325 mg oral enteric coated tablet, 325 mg, By Mouth, Daily Melatonin Tablet, 3 mg, By Mouth, Daily at bedtime, PRN MiraLax Powder, 17 Gm= 1 pack/packet, By Mouth, Daily, PRN NaCL 0.9% Bolus 500 mL, 500 mL, IV Infusion, Once NaCL 0.9% Bolus 500 mL, 500 mL, IV Infusion, Once NaCL 0.9% Flush, 3 mL, IV Push, Every 8 hours, PRN Pantoprazole Inj, 40 mg, IV Push Slowly, Every 12 hours Robitussin DM Liquid, 10 mL, By Mouth, Every 4 hours, PRN Senna Tablet, 8.6 mg= 1 tablet, By Mouth, 2 times a day, PRN Simethicone Tablet, 80 mg, Chew, 3 times a day, PRN tamsulosin 0.4 mg oral capsule, 0.4 mg, By Mouth, Daily Home acetaminophen 325 mg oral tablet, 650 mg= 2 tablet, By Mouth, 4 times a day, PRN albuterol-ipratropium 3 mg-0.5 mg/3 ml inhalation solution, 3 mL, Neb, 4 times a day, PRN brimonidine 0.2% ophthalmic solution, 1 drops, Eyes, Both, 2 times a day dapagliflozin 10 mg oral tablet, 10 mg= 1 tablet, By Mouth, Daily Digox 125 mcg (0.125 mg) oral tablet, 125 mcg= 1 tablet, By Mouth, Daily Dulcolax 10 mg rectal suppository, 10 mg= 1 supp, Rectally, Daily, PRN duloxetine 20 mg oral enteric coated capsule, 20 mg= 1 capsule, By Mouth, 2 times a day Eliquis 5 mg oral tablet, 5 mg= 1 tablet, By Mouth, 2 times a day Entresto 24 mg-26 mg oral tablet, 1 tablet, By Mouth, 2 times a day ferrous sulfate 325 mg oral enteric coated tablet, 325 mg= 1 tablet, By Mouth, Daily Fleet Enema 19 gm-7 gm rectal enema, 1 each, Rectally, Once, PRN gabapentin 100 mg oral capsule, 200 mg= 2 capsule, By Mouth, 2 times a day lactulose 10 gm/15 ml oral syrup, 10 Gm= 15 mL, By Mouth, Daily Lasix 40 mg oral tablet, 40 mg= 1 tablet, By Mouth, 2 times a day melatonin 3 mg oral tablet, 6 mg= 2 tablet, By Mouth, Daily at bedtime, PRN Milk of Magnesia 8% oral suspension, 2.4 Gm= 30 mL, By Mouth, Daily, PRN Multivit Therapeutic/Minerals Tablet, 1 tablet, By Mouth, Daily nalOXONE / Narcan 4mg Nasal [place] (OP), 0.4 mg, Once, PRN omeprazole 20 mg oral delayed release tablet, 20 mg= 1 tablet, By Mouth, 2 times a day oxybutynin 5 mg/24 hours oral tablet, extended release, 5 mg, By Mouth, Daily oxyCODONE 5 mg oral tablet, 5 mg= 1 tablet, By Mouth, Every 6 hours, PRN potassium chloride 20 mEq oral tablet, extended release, 20 mEq= 1 tablet, By Mouth, Daily Senna Plus 50 mg-8.6 mg oral tablet, 2 tablet, By Mouth, Daily tamsulosin 0.4 mg oral capsule, 0.4 mg= 1 capsule, By Mouth, Daily Allergies aspirin??(upset stomach, Aspirin adverse reaction, Aspirin adverse reaction) penicillins??(rash) Social History Alcohol Use: Never. Home/Environment Living situation: [facility]. Other: [facility]. Substance Abuse Use: Never. Tobacco Use: Former smoker, quit more than 30 days ago. Lab Results Test Name Test Result Date/Time WBC 3.7 k/mm3 11/10/2024 05:19 EST RBC 2.77 m/mm3 11/10/2024 05:19 EST Hgb 7.1 Gm/dL 11/10/2024 05:19 EST Hct 24.9 % 11/10/2024 05:19 EST MCV 89.9 femtoliters 11/10/2024 05:19 EST MCH 25.6 pg 11/10/2024 05:19 EST MCHC 28.5 Gm/dL 11/10/2024 05:19 EST Platelet Count 180 k/mm3 11/10/2024 05:19 EST RDW-SD 62.0 femtoliters 11/10/2024 05:19 EST MPV 9.1 femtoliters 11/10/2024 05:19 EST Nucleated RBC (Automated) 0.0 #/100 WBC'S 11/10/2024 05:19 EST Abs. NRBC 0.0 k/mm3 11/10/2024 05:19 EST Sodium 145 mmol/L 11/10/2024 05:19 EST Potassium 3.5 mmol/L 11/10/2024 05:19 EST Chloride 110 mmol/L 11/10/2024 05:19 EST Bicarbonate Level 32 mmol/L 11/10/2024 05:19 EST Anion Gap 3 11/10/2024 05:19 EST BUN 33 mg/dL 11/10/2024 05:19 EST Creatinine-Blood 0.66 mg/dL 11/10/2024 05:19 EST Estimated GFR Creatinine 101 ML/MIN/1.73 M2 11/10/2024 05:19 EST Phosphorus 3.6 mg/dL 11/10/2024 05:19 EST Magnesium 1.9 mg/dL 11/10/2024 05:19 EST Diagnostic Results (10/10/2024 19:[address] Angio Abdomen and Pelvis) IMPRESSION:? 1. ??No evidence of intestinal bleeding. Moderate stool retention and gaseous distention within theright and transverse colon respectively. Liquid stool in the rectosigmoid colon as can be seen withacute diarrheal illness. 2. ??Increasing size of the fluid and gas collection overlying the right aspect of the lumbosacral junction and overlying the left sacroiliac joint. These remain consistent with decubitus ulcers withincreasing phlegmonous change. 3. ??Bilateral inguinal lymphadenopathy, increased in size and extent. Few additional right-sided iliac chain nodes are also mildly enlarged. These may be reactive considering the infectious/inflammatory findings described above. 4. ??Mild circumferential urinary bladder wall thickening, which is at least partially due to underdistention. Perivesicular fat stranding is suboptimally evaluated given diffuse mesenteric edema andring artifact. Correlation with patient's symptoms and urinalysis recommended to exclude cystitis. 5. ??Additional chronic findings, as detailed above. [1] [1]??CT Angio Abdomen and Pelvis; Gerson Montana MD 10/10/2024 19:03 EST * Zoë Hdz DO Tri: PERFORM Event Display: Consultation Note Authored Date: GI Attending Note: ?? The patient was seen, examined and discussed with the??fellow. I have personally reviewed all of the labs and imaging. Additionally, I personally created the assessment and plan of care on rounds anddelineated in the above note. Additional comments as below: ?? see egd report ?? Please call with questions or concerns. Thank you for allowing me to participate in this patient's care. ?? Zoë Hdz, DO Advanced Therapeutic Endoscopy [facility] Gastroenterology [address], [address] [place] [address] Patient Care team information Care Team Personnel Name: Alfreda Arteaga RN Position: S RN Member Role: Primary Care Nurse Name: Ez Zurita RN Position: [facility] RN Member Role: Primary Care Nurse Name: Brian Vanegas RN Position: [facility] RN Member Role: Primary Care Nurse Name: Asher Crocker LPN Position: S RN Member Role: Primary Care Nurse Name: Meliton Turner RN Position: [facility] RN Member Role: Primary Care Nurse Name: Xochitl Connell RN Position: [facility] RN Member Role: Primary Care Nurse Name: Kaden Mccoy RN Position: [facility] RN Member Role: Primary Care Nurse Name: Marilyn Mullins RN Position: [facility] RN Member Role: Primary Care Nurse Name: Mariann Bhat RN Position: [facility] RN Member Role: Primary Care Nurse Name: Gloria Post RN Position: [facility] RN Member Role: Primary Care Nurse Name: Katie David MD Position: [facility] Physician - Neurology Member Role: PCP Address: [address] [place] [address] [address] [facility] [place] [address]- Telecom: Name: Levi Gallegos RN Position: [facility] RN Member Role: Primary Care Nurse Name: Gerda Salinas RN Position: [facility] RN Member Role: Primary Care Nurse Name: Vera Hoffman RN Position: [facility] SN RN Member Role: Primary Care Nurse Name: Rony Balderas RN Position: [facility] RN Member Role: Primary Care Nurse Name: Kenya Johnston RN Position: [facility] RN Member Role: Primary Care Nurse Name: Alex Baca RN Position: [facility] RN Member Role: Primary Care Nurse Name: Tanya Aguila RN Position: [facility] RN Member Role: Primary Care Nurse Name: Pascale Billingsley RN Position: [facility] RN Member Role: Primary Care Nurse Name: Danuta Higgins RN Position: [facility] RN Member Role: Primary Care Nurse Name: Preethi Rivero RN Position: [facility] RN Member Role: Primary Care Nurse Name: Ros Myers RN Position: [facility] RN Member Role: Primary Care Nurse Name: Violetta Camacho RN Position: [facility] RN Member Role: Primary Care Nurse Name: Deepak Love RN Position: [facility] RN Member Role: Primary Care Nurse Name: Michelle Henry RN Position: [facility] RN Member Role: Primary Care Nurse Name: Elis Barraza LPN Position: [facility] RN Member Role: Primary Care Nurse Name: Rosy Hartley LPN Position: [facility] RN Member Role: Primary Care Nurse Name: Evelyn Licona RN Position: [facility] RN Member Role: Primary Care Nurse Name: Yu Méndez RN Position: [facility] RN Member Role: Primary Care Nurse Name: Yane Oliva RN, I Position: [facility] RN Member Role: Primary Care Nurse Care Team Related Persons Name: STEPHANIE CERNA Name: NICOLASA GODDARD Insurance Providers Guarantor name: BRIAN ROWEEWSON Health Plan Information #: 3 Payer: [employer] Member Number: [id number] Policy Number: NA Group Number: NA Health Plan Information #: 4 Payer: [employer] Member Number: [id number] Policy Number: NA Group Number: NA Health Plan Information #: 1 Payer: MEDICARE A INPT 25 Member Number: [id number] Policy Number: NA Group Number: NA Health Plan Information #: 2 Payer: MEDICARE PART B OUTPT Member Number: [id number] Policy Number: NA Group Number: NA
== END 2024-12-11 14:53 | disposition home or self-care (01) ==
LOC: HO.HCS 13:40
PROVIDERS: PCP Internal Medicine; Visit Provider Internal Medicine
DX: I48.21 Permanent atrial fibrillation (principal); I50.42 Chronic combined systolic (congestive) and diastolic (congestive) heart failure; I50.812 Chronic right heart failure
CPT/HCPCS: 93010; 99215; G2211

== ENCOUNTER → 2024-12-11 13:40 | Outpatient (BNVA) | payer MEDICARE, MEDICAID, SELFPAY | PROVIDERS: PCP Internal Medicine; Visit Provider Internal Medicine | DX: I48.21 Permanent atrial fibrillation (principal); I11.0 Hypertensive heart disease with heart failure; I50.42 Chronic combined systolic (congestive) and diastolic (congestive) heart failure; I50.812 Chronic right heart failure; Z86.718 Personal history of other venous thrombosis and embolism; Z95.0 Presence of cardiac pacemaker; Z99.3 Dependence on wheelchair | CPT/HCPCS: 93005; 99212 ==

== ENCOUNTER → 2025-01-27 23:59 | Outpatient (BNV) | payer MEDICARE, MEDICAID, SELFPAY ==
--- NOTE | 2025-01-29 18:56 | MHC.OFFVIS ---
Intake Visit Reasons: Remote device check- [facility] j[facility] Allergies aspirin [Aspirin] Allergy (Unknown, Verified 06/10/24 13:51) UPSET STOMACH, edema Penicillins Allergy (Unknown, Verified 06/10/24 13:51) unknown ON LICENSE OF [facility] Medical History (Updated 12/11/24 @ 16:04 by Dario Obrien MD) Chronic combined systolic and diastolic CHF (congestive heart failure) Edema, unspecified MANUEL (obstructive sleep apnea) Essential hypertension Permanent atrial fibrillation Surgical History No pertinent past surgical history Family History (Updated 12/11/24 @ 14:08 by Dario Obrien MD) Mother Breast cancer Father Liver cancer Social History (Updated 12/11/24 @ 13:53 by Dario Obrien MD) Patient Tobacco Use Status: Former Tobacco user Office Procedures Cardiac Device Check Cardiac Device Check Details: Date of service- 01/27/2025 ; Battery life 4.8-9 months; normal lead parameters; [employer]ING INTERN 17%; no significant arrhythmias. Overall normal device function. [id number] Cardiac Device Interrogation, pacemaker Procedure code (CPT) selection complete Assessment & Plan Assessment & Plan (1) Pacemaker: Code(s): Z95.0 - Presence of cardiac pacemaker Category: Medical (2) Permanent atrial fibrillation: Code(s): I48.21 - Permanent atrial fibrillation Category: Medical Plan x Coding Level of Care Code Procedure Only Diagnoses Pacemaker Z95.0 Permanent atrial fibrillation I48.21 CPT Codes Cardiac Device Check - Cardiac Device 12: [id number] Cardiac Device Interrogation, pacemaker ([id number])
== END ==
PROVIDERS: PCP Internal Medicine; Visit Provider Internal Medicine
DX: I48.21 Permanent atrial fibrillation (principal); Z95.0 Presence of cardiac pacemaker
CPT/HCPCS: 93294

== ENCOUNTER → 2025-04-28 23:59 | Outpatient (BNV) | payer MEDICARE, MEDICAID, SELFPAY ==
--- NOTE | 2025-05-04 12:48 | MHC.OFFVIS ---
Intake Visit Reasons: Remote device check- [facility] joss Allergies aspirin (Aspirin) Allergy (Unknown, Verified 06/10/24 13:51) UPSET STOMACH, edema Penicillins Allergy (Unknown, Verified 06/10/24 13:51) unknown [facility] Medical History (Updated 12/11/24 @ 16:04 by Dario Obrien MD) Chronic combined systolic and diastolic CHF (congestive heart failure) Edema, unspecified MANUEL (obstructive sleep apnea) Essential hypertension Permanent atrial fibrillation Surgical History No pertinent past surgical history Family History (Updated 12/11/24 @ 14:08 by Dario Obrien MD) Mother Breast cancer Father Liver cancer Social History (Updated 12/11/24 @ 13:53 by Dario Obrien MD) Patient Tobacco Use Status: Former Tobacco user Office Procedures Cardiac Device Check Cardiac Device Check Details: Date of service- 04/28/2025 ; Battery life 5.1months; normal lead parameters; [place] [employer] 21%; no significant arrhythmias. Overall normal device function. [id number] Cardiac Device Interrogation, pacemaker Procedure code (CPT) selection complete Assessment & Plan Assessment & Plan (1) Pacemaker: Code(s): Z95.0 - Presence of cardiac pacemaker Category: Medical (2) Permanent atrial fibrillation: Code(s): I48.21 - Permanent atrial fibrillation Category: Medical Plan x Coding Level of Care Code Procedure Only Diagnoses Pacemaker Z95.0 Permanent atrial fibrillation I48.21 CPT Codes Cardiac Device Check - Cardiac Device 12: [id number] Cardiac Device Interrogation, pacemaker ([id number])
== END ==
PROVIDERS: PCP Internal Medicine; Visit Provider Internal Medicine
DX: I48.21 Permanent atrial fibrillation (principal); Z95.0 Presence of cardiac pacemaker
CPT/HCPCS: 93294